=== PATIENT | female | born 1975 | race African-American/Black ===

== ENCOUNTER 2016-12-30 07:56 | Inpatient (IN) | payer OTHER ==
[~2016-12-30] VITALS: Ht 157.5 cm; Wt 127.0 kg
--- NOTE | 2016-12-30 08:23 | PHYS DOC ---
Past Medical History Past Medical History: CAD, High Cholesterol, Hypertension, NE Past Surgical History: Cholecystectomy, Other Additional Past Surgical Histo: cardiac cath, no stents placed. Alcohol Use: None Drug Use: None Adult General Chief Complaint Chief Complaint: CHEST PAIN HPI HPI Patient is a 41 year old female who is obese presents to the emergency department stating that 30 minutes prior to arrival she developed squeezing type pain in her right upper chest that radiated into her right hand. Patient denies SOA, difficulty breathing, nausea or vomiting, denies diaphoresis. Patient did take 2 ASA at home with no relief of pain. 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 Review of Systems Review of Systems Constitutional: Denies fever or chills [] Eyes: Denies change in visual acuity, redness, or eye pain [] HENT: Denies nasal congestion or sore throat [] Respiratory: Denies cough or shortness of breath [] Cardiovascular: No additional information not addressed in HPI [] GI: Denies abdominal pain, nausea, vomiting, bloody stools or diarrhea [] : Denies dysuria or hematuria [] Musculoskeletal: Denies back pain or joint pain [] Integument: Denies rash or skin lesions [] Neurologic: Denies headache, focal weakness or sensory changes [] Endocrine: Denies polyuria or polydipsia [] Current Medications Current Medications Current Medications Medications (Trade) Dose Ordered Sig/Kristopher Start Time Stop Time Status Last Admin Dose Admin Acetaminophen (Tylenol) 650 mg 1X ONCE 12/30/16 09:00 12/30/16 09:01 DC 12/30/16 09:07 650 MG Heparin Sodium (Porcine) (Heparin Sodium) 6,000 unit 1X ONCE 12/30/16 09:15 12/30/16 09:19 DC Heparin Sodium/ Dextrose 500 ml @ 0 mls/hr 1X ONCE 12/30/16 09:15 12/30/16 09:19 DC Labetalol HCl (Normodyne) 10 mg PRN Q2HR PRN 12/30/16 09:45 Nitroglycerin (Nitrostat) 0.4 mg PRN Q5MIN PRN 12/30/16 08:30 12/30/16 08:39 0.4 MG Allergies Allergies Allergies Coded Allergies Type Severity Reaction Last Updated Verified No Known Drug Allergies 04/07/14 No Physical Exam Physical Exam Constitutional: Well developed, well nourished, no acute distress, non-toxic appearance. [] HENT: Normocephalic, atraumatic, bilateral external ears normal, oropharynx moist, no oral exudates, nose normal. [] Eyes: PERRLA, EOMI, conjunctiva normal, no discharge. [] Neck: Normal range of motion, no tenderness, supple, no stridor. [] Cardiovascular:Heart rate regular rhythm, no murmur [] Lungs & Thorax: Bilateral breath sounds clear to auscultation [] Abdomen: Bowel sounds normal, soft, no tenderness, no masses, no pulsatile masses. [] Skin: Warm, dry, no erythema, no rash. [] Back: No tenderness Extremities: No tenderness, no cyanosis, no clubbing, ROM intact, no edema. [] Neurologic: Alert and oriented X 3, normal motor function, normal sensory function, no focal deficits noted. [] Psychologic: Affect normal, judgement normal, mood normal. [] Current Patient Data Vital Signs Vital Signs Date Time Temp Pulse Resp B/P (MAP) Pulse Ox O2 Delivery O2 Flow Rate FiO2 12/30/16 09:09 81 18 173/93 (119) 100 Room Air 12/30/16 08:03 97.8 97.8 Lab Values Laboratory Tests Test 12/30/16 08:42 White Blood Count 5.5 x10^3/uL (4.0-11.0) Red Blood Count 4.31 x10^6/uL (3.50-5.40) Hemoglobin 11.9 g/dL (12.0-15.5) L Hematocrit 36.6 % (36.0-47.0) Mean Corpuscular Volume 85 fL (79-100) Mean Corpuscular Hemoglobin 28 pg (25-35) Mean Corpuscular Hemoglobin Concent 33 g/dL (31-37) Red Cell Distribution Width 14.2 % (11.5-14.5) Platelet Count 241 x10^3/uL (140-400) Neutrophils (%) (Auto) 56 % (31-73) Lymphocytes (%) (Auto) 38 % (24-48) Monocytes (%) (Auto) 4 % (0-9) Eosinophils (%) (Auto) 1 % (0-3) Basophils (%) (Auto) 1 % (0-3) Neutrophils # (Auto) 3.1 x10^3uL (1.8-7.7) Lymphocytes # (Auto) 2.1 x10^3/uL (1.0-4.8) Monocytes # (Auto) 0.2 x10^3/uL (0.0-1.1) Eosinophils # (Auto) 0.1 x10^3/uL (0.0-0.7) Basophils # (Auto) 0.0 x10^3/uL (0.0-0.2) Sodium Level 140 mmol/L (136-145) Potassium Level 3.8 mmol/L (3.5-5.1) Chloride Level 105 mmol/L (98-107) Carbon Dioxide Level 25 mmol/L (21-32) Anion Gap 10 (6-14) Blood Urea Nitrogen 10 mg/dL (7-20) Creatinine 0.7 mg/dL (0.6-1.0) Estimated GFR (Cockcroft-Gault) 110.5 BUN/Creatinine Ratio 14 (6-20) Glucose Level 134 mg/dL (70-99) H Calcium Level 8.6 mg/dL (8.5-10.1) Total Bilirubin 0.3 mg/dL (0.2-1.0) Aspartate Amino Transferase (AST) 18 U/L (15-37) Alanine Aminotransferase (ALT) 17 U/L (14-59) Alkaline Phosphatase 90 U/L (46-116) Creatine Kinase 128 U/L (26-192) Creatine Kinase MB (Mass) 2.1 ng/mL (0.0-3.6) Creatine Kinase MB Relative Index 1.6 % (0-4) Troponin I Quantitative 0.162 ng/mL (0.000-0.055) Total Protein 7.2 g/dL (6.4-8.2) Albumin 3.2 g/dL (3.4-5.0) L Albumin/Globulin Ratio 0.8 (1.0-1.7) L Laboratory Tests 12/30/16 08:42 Laboratory Tests 12/30/16 08:42 EKG EKG EKG completed at 0806 with HR 67 SR noted no STEMI per Dr Goss.[] Radiology/Procedures Radiology/Procedures [facility] [address] [place] [address] IMAGING REPORT Signed PATIENT: HOMA GRAY ACCOUNT: [id number] : 1975 LOCATION: ER AGE: 41 SEX: F EXAM STATUS: PRE ER ORD. PHYSICIAN: KORIN HERNANDEZ APRN REASON: chest pain,pt states mid chest pain that radiates to right arm,denies sob PROCEDURE: PORTABLE CHEST 1V Indication: Chest pain radiating to right arm Technique: Upright portable chest radiograph was obtained. Comparison is from October 07, 2009. Findings: The lungs are clear. The cardiopulmonary silhouette is within normal limits. The bony structures are intact. Leads overlie the patient. Impression: No active pulmonary disease. DICTATED and SIGNED BY: FRANDY WELLS MD DATE: 12/30/16832 CC: KORIN HERNANDEZ APRN; NON,STAFF ~ [] Course & Med Decision Making Course & Med Decision Making Pertinent Labs and Imaging studies reviewed. (See chart for details) 0815 Patient was provided with nitro for chest pain/left arm pain and elevation BP. Labs have been ordered and pending. Care discussed with Dr Goss. Chest pain after 2 nitro is gone, patient is c/o headache with tylenol ordered. [address] Lin in regards to admission of this patient for chest pain and elevated troponin. Dr Lin is aware of the BP and HR at this time. [address] Billy in regards to elevated troponin, chest pain and admission. He is aware of BP and order for labetalol. Orders will be placed for this patient. Dr Billy also agrees with Heparin order at this time. Patient is aware of admission, she is aware of lab results. [] Dragon Disclaimer Dragon Disclaimer This electronic medical record was generated, in whole or in part, using a voice recognition dictation system. Departure Departure Impression: Primary Impression: Chest pain Additional Impression: Elevated troponin Disposition: 09 ADMITTED INPATIENT Admitting Physician: Other (Spoke with Dr Lin and Dr Billy) Referrals: NON,STAFF (PCP) Problem Qualifiers KORIN HERNANDEZ APRN December 30, 2016 08:23
[2016-12-30] MEDS: NITROGLYCERIN SUBLINGUAL 0.4 MG BOTTLE OF 25. SL PRN ×2 (08:26→08:39)
--- NOTE | 2016-12-30 08:36 | RAD ---
Indication: Chest pain radiating to right arm Technique: Upright portable chest radiograph was obtained. Comparison is from October 07, 2009. Findings: The lungs are clear. The cardiopulmonary silhouette is within normal limits. The bony structures are intact. Leads overlie the patient. Impression: No active pulmonary disease.
[2016-12-30 08:52] LABS: BASO % 1 % (0-3); EOS % 1 % (0-3); HEMATOCRIT 36.6 % (36.0-47.0); HEMOGLOBIN 11.9 g/dL (12.0-15.5); LYMPH # 2.1 x10^3/uL (1.0-4.8); LYMPH % 38 % (24-48); MEAN CORPUSCULAR HEMOGLOBIN 28 pg (25-35); MEAN CORPUSCULAR HGB CONC 33 g/dL (31-37); MEAN CORPUSCULAR VOLUME 85 fL (79-100); MONO % 4 % (0-9); NEUT % 56 % (31-73); PLATELET COUNT 241 x10^3/uL (140-400); RED BLOOD COUNT 4.31 x10^6/uL (3.50-5.40); RED CELL DISTRIBUTION WIDTH 14.2 % (11.5-14.5); WHITE BLOOD COUNT 5.5 x10^3/uL (4.0-11.0)
[2016-12-30] MEDS ORDERED: ACETAMINOPHEN 325 MG TABLET. PO ONE (09:00)
[2016-12-30 09:01] LABS: CALCIUM 8.6 mg/dL (8.5-10.1); CREATININE 0.7 mg/dL (0.6-1.0); GFR 110.5; POTASSIUM 3.8 mmol/L (3.5-5.1)
[2016-12-30 09:05] LABS: ALBUMIN 3.2 g/dL (3.4-5.0); ALBUMIN/GLOBULIN RATIO 0.8 (1.0-1.7); TOTAL BILIRUBIN 0.3 mg/dL (0.2-1.0); TOTAL PROTEIN 7.2 g/dL (6.4-8.2)
[2016-12-30 09:13] LABS: CKMB MASS 2.1 ng/mL (0.0-3.6)
[2016-12-30] MEDS ORDERED: HEPARIN 25,000UTS/500ML PREMIX 500 ML IV ONE (09:15)
[2016-12-30] MEDS ORDERED: HEPARIN for IV BOLUS 10,000 UNIT/10 ML VIAL. IV ONE (09:15)
--- NOTE | 2016-12-30 09:26 | ACF ---
Admission Forms Criteria CHEST PAIN Clinical Indications for Admission to Inpatient Care (Place 'X' for any and all applicable criteria): Admission is indicated for chest pain and ANY ONE of the following(1)(2)(3)(4)(5 ): [ ]I. Angina with acute coronary syndrome (Also use Myocardial Infarction or Angina guideline) [ ]II. Hemodynamic instability [ ]III. Angina needing acute intervention as indicated by ALL of the following( 11)(12): [ ]a) Unstable angina is present as indicated by angina that is ANY ONE of the following: [ ]i) New onset [ ]ii) Nocturnal [ ]iii) Prolonged at rest [ ]iv) Progressive [ ]b) Angina warrants acute intervention as indicated by ANY ONE of the following: [ ]i) Recurrent angina (e.g, not responding as previously to treatment) [ ]ii) Angina at rest or with low-level activities despite initial medical therapy [ ]iii) New or presumably new ST-segment depression on ECG [ ]iv) Signs or symptoms of heart failure (eg, dyspnea, pulmonary edema) [ ]v) New or worsening mitral regurgitation [ ]vi) Hemodynamic instability [ ]vii) Dangerous arrhythmia (eg, sustained ventricular tachycardia) [ ]viii) History of percutaneous coronary intervention within 6 months [ ]ix) History of coronary artery bypass graft surgery [ ]x) DAVION risk score of 2 or greater[A] [ ]xi) History of Diabetes(14) [ ]xii) High-risk cardiac ischemia findings on noninvasive testing (e.g, echocardiogram, treadmill testing, nuclear scan) [ ]xiii) Chronic renal insufficiency (ie, estimated GFR less than 60 mL/min/1.732m) [ ]xiv) Left ventricular ejection fraction less than 40% [X]IV. Evidence of CO (eg, cardiac biomarkers positive, ST-segment elevation on ECG) also use Myocardial Infarction Criteria Form. [ ]V. Pulmonary edema [ ]. Respiratory distress [ ]VII. Chest pain indicative of serious diagnosis other than coronary artery disease (eg, aortic dissection) [ ]VIII. Contraindications and/or Inappropriate clinical situations for Observational Care in patients with Chest Pain, when ANY ONE of the following is required: [ ]a) Patient with risk factor for pulmonary embolism, acute coronary syndrome and myocardial infarction (18) [ ]b) Patient with Pulmonary embolism require an average LOS of 4.3 days, therefore emergency department observation management is inappropriate 18,23 [ ]c) Painful condition/s in the elderly, have the highest rate of recidivism after emergency department observation management (10.8%) 20,21,22 [ ]d) Elevated cardiac biomarker requires intensive and exhaustive care (19) [ ]IX. General contraindications and/or Inappropriate clinical situations for Observational Care in patients with Chest Pain, when ANY ONE of the following is required: [ ]a) Prediction of prolongation of LOS based on ANY ONE of the following may be considered as a contraindication for observational care 2, 3, 4, 5, 6, 7, 8, 9, 10, 11 [ ]i) Age > 65 yrs. [ ]ii) Patient arriving by ambulance [ ]iii) Patient with high acuity [ ]iv) Patient requiring vital sign monitoring [ ]v) Patient on IV medication [ ]b) Systolic blood pressures 180mmHg 3,12 [ ]c) Patient with altered mental status including delirium and other alteration of consciousness, (3) [ ]d) Patient whose discharge disposition will be to a nursing home home or rehabilitation home should not be managed in Emergency Department Observation Unit. CMS rule requires 3 days hospital stay before such placement. 3,13 [ ]e) Patient with failure to thrive due to broad array of etiologies 3,16,17 [ ]f) Inability to ambulate 3,14 Extended stay beyond goal length of stay may be needed for (1)(28): [ ]a) Specific condition diagnosed after evaluation (eg, pulmonary embolism, aortic dissection) [ ]b) Unstable angina [ ]c) Continued suspicion of acute coronary syndrome with inability to complete needed cardiac evaluation (eg, patient clinically unable to undergo stress testing) [ ]d) Myocardial infarction (Contents from ANGINA and CHEST PAIN clinical indications for admission to inpatient care have been integrated in this form) The original [facility] content created by [employer] has been revised. The portions of the content which have been revised are identified through the use of italic text or in bold, and [facility] has neither reviewed nor approved the modified material. All other unmodified content is copyright [employer]. Please see references footnoted in the original [facility] edition 2016 Admission Criteria Met?: Yes CYNTHIA REGALADO December 30, 2016 09:26
[2016-12-30] MEDS: LABETALOL 20 MG/4 ML DISP.SYRIN. IVP PRN ×2 (10:08→10:10)
[2016-12-30 10:29] LABS: INR 1.1 (0.8-1.1); PROTHROMBIN TIME PATIENT 13.9 SEC (11.7-14.0)
[2016-12-30 11:31] VITALS: BP 140/71
--- NOTE | 2016-12-30 12:46 | PDOC1 ---
History and Physical Date of Admission Date of Admission DATE: 12/30/16 TIME: 12:38 Identification/Chief Complaint Chief Complaint chest pain Problems: Source Source: Caregiver, Chart review, Patient History of Present Illness History of Present Illness 41 y.o heavy set AA female, hx of chest pains, intermittent for yrs now, HAd a cardiac cath in in 2012, showed some "thickening" but no stents placed. She is supposed to be on anti hypertensives, buts he admits she is not on any, She has not seen her PCP either, HEr BP is high at ER, better with labetolol pushes that I have ordered. CP she describes as left sided, radiated to her R arm, described as tight, no diaphoresis or SOA but had headaches. Occurred at rest, alleviated by NTG SL and 2 ASA she took at home EKg unimpressive but did spike trop 0.162 Started on heparin gtt by cards, and to get records from . PLanned for possibly MPI karri Past Medical History Cardiovascular: HTN Past Surgical History Past Surgical History: Other (minor abodminal surgical hx) Family History Family History: Hypertension Social History Smoke: No ALCOHOL: none Drugs: None Current Problem List Problem List Problems Medical Problems: (1) Chest pain Status: Acute (2) Elevated troponin Status: Acute Problems: Current Medications Current Medications Current Medications Nitroglycerin (Nitrostat) 0.4 mg PRN Q5MIN PRN SL CHEST PAIN Last administered on 12/30/16 08:39; Start 12/30/16 at 08:30 Acetaminophen (Tylenol) 650 mg 1X ONCE PO Last administered on 12/30/16 09:07 ; Start 12/30/16 at 09:00; Stop 12/30/16 at 09:01; Status DC Heparin Sodium (Porcine) (Heparin Sodium) 6,000 unit 1X ONCE IV Last administered on 12/30/16 09:48; Start 12/30/16 at 09:15; Stop 12/30/16 at 09:19 ; Status DC Heparin Sodium/ Dextrose 500 ml @ 0 mls/hr 1X ONCE IV Last administered on 09:51; Start 12/30/16 at 09:15; Stop 12/30/16 at 09:19; Status DC Labetalol HCl (Normodyne) 10 mg PRN Q2HR PRN IVP HYPERTENSION, SEE COMMENTS Last administered on 5/21/17at 10:10; Start 12/30/16 at 09:45 Allergies Allergies: Coded Allergies: No Known Drug Allergies (Unverified , 04/07/14) ROS General: No: Chills, Night Sweats, Fatigue, Malaise, Appetite, Other PSYCHOLOGICAL ROS: No: Anxiety, Behavioral Disorder, Concentration difficultie , Decreased libido, Depression, Disorientation, Hallucinations, Hostility, Irritablity, Memory difficulties, Mood Swings, Obsessive thoughts, Physical abuse, Sexual abuse, Sleep disturbances, Suicidal ideation, Other Eyes: No Blurry vision, No Decreased vision, No Double vision, No Dry eyes, No Excessive tearing, No Eye Pain, No Itchy Eyes, No Loss of vision, No Photophobia , No Scotomata, No Uses contacts, No Uses glasses, No Other HEENT: No: Heacaches, Visual Changes, Hearing change, Nasal congestion, Nasal discharge, Oral lesions, Sinus pain, Sore Throat, Epistaxis, Sneezing, Snoring, Tinnitus, Vertigo, Vocal changes, Other ALLERGY AND IMMUNOLOGY: No: Hives, Insect Bite Sensitivity, Itchy/Watery Eyes, Nasal Congestion, Post Nasal Drip, Seasonal Allergies, Other Hematological and Lymphatic: No: Bleeding Problems, Blood Clots, Blood Transfusions, Brusing, Night Sweats, Pallor, Swollen Lymph Nodes, Other ENDOCRINE: No: Breast Changes, Galactorrhea, Hair Pattern Changes, Hot Flashes , Malaise/lethargy, Mood Swings, Palpitations, Polydipsia/polyuria, Skin Changes , Temperature Intolerance, Unexpected Weight Changes, Other Breast: No New/Changing Breast Lumps, No Nipple changes, No Nipple discharge, No Other Respiratory: No: Cough, Hemoptysis, Orthopnea, Pleuritic Pain, Shortness of breath, SOB with excertion, Sputum Changes, Stridor, Tachypnea, Wheezing, Other Cardiovascular: yes Chest Pain Gastrointestinal: No Nausea, No Vomiting, No Abdominal Pain, No Diarrhea, No Constipation, No Melena, No Hematochezia, No Other Genitourinary: No Dysuria, No Frequency, No Incontinence, No Hematuria, No Retention, No Discharge, No Urgency, No Pain, No Flank Pain, No Other, No , No , No , No , No , No , No Musculoskeletal: No Gait Disturbance, No Joint Pain, No Joint Stiffness, No Joint Swelling, No Muscle Pain, No Muscular Weakness, No Pain In:, No Swelling In:, No Other Neurological: No Behavorial Changes, No Bowel/Bladder ControlChng, No Confusion , No Dizziness, No Gait Disturbance, No Headaches, No Impaired Coord/balance, No Memory Loss, No Numbness/Tingling, No Seizures, No Speech Problems, No Tremors, No Visual Changes, No Weakness, No Other Skin: No Dry Skin, No Eczema, No Hair Changes, No Lumps, No Mole Changes, No Mottling, No Nail Changes, No Pruritus, No Rash, No Skin Lesion Changes, No Other, No Acne Physical Exam General: Alert, Oriented X3, Cooperative, No acute distress HEENT: Atraumatic, PERRLA, EOMI Lungs: Clear to auscultation, Normal air movement Heart: S1S2, RRR, no thrills, no rubs, no gallops Cardiovascular: S1, S2 Breasts: Normal, Rt breast nml w/o mass, Lt breast nml w/o mass, Nipples normal Rectal Exam: not examined Extremities: No clubbing, No cyanosis, No edema, Normal pulses, No tenderness/ swelling Skin: No rashes, No breakdown, No significant lesion Neuro: Normal gait, Normal speech, Strength at 5/5 X4 ext, Normal tone, Sensation intact, Cranial nerves 3-12 NL, Reflexes 2+ Psych/Mental Status: Mental status NL, Mood NL Vitals Vitals Vital Signs Date Time Temp Pulse Resp B/P (MAP) Pulse Ox O2 Delivery O2 Flow Rate FiO2 12/30/16 11:31 97.7 63 20 140/71 (94) 97.7 12/30/16 10:15 100 Room Air Labs Labs Laboratory Tests Test 12/30/16 08:42 12/30/16 09:40 White Blood Count 5.5 x10^3/uL (4.0-11.0) Red Blood Count 4.31 x10^6/uL (3.50-5.40) Hemoglobin 11.9 g/dL (12.0-15.5) Hematocrit 36.6 % (36.0-47.0) Mean Corpuscular Volume 85 fL (79-100) Mean Corpuscular Hemoglobin 28 pg (25-35) Mean Corpuscular Hemoglobin Concent 33 g/dL (31-37) Red Cell Distribution Width 14.2 % (11.5-14.5) Platelet Count 241 x10^3/uL (140-400) Neutrophils (%) (Auto) 56 % (31-73) Lymphocytes (%) (Auto) 38 % (24-48) Monocytes (%) (Auto) 4 % (0-9) Eosinophils (%) (Auto) 1 % (0-3) Basophils (%) (Auto) 1 % (0-3) Neutrophils # (Auto) 3.1 x10^3uL (1.8-7.7) Lymphocytes # (Auto) 2.1 x10^3/uL (1.0-4.8) Monocytes # (Auto) 0.2 x10^3/uL (0.0-1.1) Eosinophils # (Auto) 0.1 x10^3/uL (0.0-0.7) Basophils # (Auto) 0.0 x10^3/uL (0.0-0.2) Sodium Level 140 mmol/L (136-145) Potassium Level 3.8 mmol/L (3.5-5.1) Chloride Level 105 mmol/L (98-107) Carbon Dioxide Level 25 mmol/L (21-32) Anion Gap 10 (6-14) Blood Urea Nitrogen 10 mg/dL (7-20) Creatinine 0.7 mg/dL (0.6-1.0) Estimated GFR (Cockcroft-Gault) 110.5 BUN/Creatinine Ratio 14 (6-20) Glucose Level 134 mg/dL (70-99) Calcium Level 8.6 mg/dL (8.5-10.1) Total Bilirubin 0.3 mg/dL (0.2-1.0) Aspartate Amino Transf (AST/SGOT) 18 U/L (15-37) Alanine Aminotransferase (ALT/SGPT) 17 U/L (14-59) Alkaline Phosphatase 90 U/L (46-116) Creatine Kinase 128 U/L (26-192) Creatine Kinase MB (Mass) 2.1 ng/mL (0.0-3.6) Creatine Kinase MB Relative Index 1.6 % (0-4) Troponin I Quantitative 0.162 ng/mL (0.000-0.055) Total Protein 7.2 g/dL (6.4-8.2) Albumin 3.2 g/dL (3.4-5.0) Albumin/Globulin Ratio 0.8 (1.0-1.7) Prothrombin Time 13.9 SEC (11.7-14.0) Prothromb Time International Ratio 1.1 (0.8-1.1) Activated Partial Thromboplast Time 31 SEC (24-38) Laboratory Tests Test 12/30/16 08:42 12/30/16 09:40 White Blood Count 5.5 x10^3/uL (4.0-11.0) Red Blood Count 4.31 x10^6/uL (3.50-5.40) Hemoglobin 11.9 g/dL (12.0-15.5) Hematocrit 36.6 % (36.0-47.0) Mean Corpuscular Volume 85 fL (79-100) Mean Corpuscular Hemoglobin 28 pg (25-35) Mean Corpuscular Hemoglobin Concent 33 g/dL (31-37) Red Cell Distribution Width 14.2 % (11.5-14.5) Platelet Count 241 x10^3/uL (140-400) Neutrophils (%) (Auto) 56 % (31-73) Lymphocytes (%) (Auto) 38 % (24-48) Monocytes (%) (Auto) 4 % (0-9) Eosinophils (%) (Auto) 1 % (0-3) Basophils (%) (Auto) 1 % (0-3) Neutrophils # (Auto) 3.1 x10^3uL (1.8-7.7) Lymphocytes # (Auto) 2.1 x10^3/uL (1.0-4.8) Monocytes # (Auto) 0.2 x10^3/uL (0.0-1.1) Eosinophils # (Auto) 0.1 x10^3/uL (0.0-0.7) Basophils # (Auto) 0.0 x10^3/uL (0.0-0.2) Sodium Level 140 mmol/L (136-145) Potassium Level 3.8 mmol/L (3.5-5.1) Chloride Level 105 mmol/L (98-107) Carbon Dioxide Level 25 mmol/L (21-32) Anion Gap 10 (6-14) Blood Urea Nitrogen 10 mg/dL (7-20) Creatinine 0.7 mg/dL (0.6-1.0) Estimated GFR (Cockcroft-Gault) 110.5 BUN/Creatinine Ratio 14 (6-20) Glucose Level 134 mg/dL (70-99) Calcium Level 8.6 mg/dL (8.5-10.1) Total Bilirubin 0.3 mg/dL (0.2-1.0) Aspartate Amino Transf (AST/SGOT) 18 U/L (15-37) Alanine Aminotransferase (ALT/SGPT) 17 U/L (14-59) Alkaline Phosphatase 90 U/L (46-116) Creatine Kinase 128 U/L (26-192) Creatine Kinase MB (Mass) 2.1 ng/mL (0.0-3.6) Creatine Kinase MB Relative Index 1.6 % (0-4) Troponin I Quantitative 0.162 ng/mL (0.000-0.055) Total Protein 7.2 g/dL (6.4-8.2) Albumin 3.2 g/dL (3.4-5.0) Albumin/Globulin Ratio 0.8 (1.0-1.7) Prothrombin Time 13.9 SEC (11.7-14.0) Prothromb Time International Ratio 1.1 (0.8-1.1) Activated Partial Thromboplast Time 31 SEC (24-38) VTE Prophylaxis Ordered VTE Prophylaxis Devices: Yes VTE Pharmacological Prophylaxi: Yes Assessment/Plan Assessment/Plan 1, Chest pains 2. Hx intermittent chest pains with no stents deployed in cardiac cath done kU 2012 3. MOrbid Obesity 4. HTN urgency POA PLAn: Labetolol prn IF HTN persists, will need 2 anti hypertensive agents to go home with Possible MPI karri or echo - follow cards recs Started on heparin gtt - cont for now Can check lipid panel dw pt and RN PILI STEWART MD December 30, 2016 12:46
--- NOTE | 2016-12-30 12:54 | PDOC2 ---
CONSULT Date of Consult Date of Consult DATE: 12/30/16 TIME: 12:48 Reason for Consult Reason for Consult: chest pain Referring Physician Referring Physician: Dr. Lin Identification/Chief Complaint Chief Complaint chest pain Source Source: Patient History of Present Illness Reason for Visit: The patient is a 41-year-old female who reports right upper chest discomfort earlier this morning radiating to her right hand. This pain was still present while she arrived in the emergency room but is now largely resolved. Her EKG shows no acute changes. Initial troponin is 0.162. The patient reports a history of a possible myocardial infarction and a cardiac catheterization at [facility] 4 years ago. She also has hypertension, hyperlipidemia and obesity. Chest x-ray is clear. She is feeling much better at this time. Past Medical History Cardiovascular: CAD, HTN, Hyperlipidemia GI: GERD Past Surgical History Past Surgical History: Other (minor abodminal surgical hx) Family History Family History: Hypertension Social History No ALCOHOL: none Drugs: None Current Problem List Problem List Problems Medical Problems: (1) Chest pain Status: Acute (2) Elevated troponin Status: Acute Current Medications Current Medications Current Medications Nitroglycerin (Nitrostat) 0.4 mg PRN Q5MIN PRN SL CHEST PAIN Last administered on 12/30/16 08:39; Start 12/30/16 at 08:30 Acetaminophen (Tylenol) 650 mg 1X ONCE PO Last administered on 12/30/16 09:07 ; Start 12/30/16 at 09:00; Stop 12/30/16 at 09:01; Status DC Heparin Sodium (Porcine) (Heparin Sodium) 6,000 unit 1X ONCE IV Last administered on 12/30/16 09:48; Start 12/30/16 at 09:15; Stop 12/30/16 at 09:19 ; Status DC Heparin Sodium/ Dextrose 500 ml @ 0 mls/hr 1X ONCE IV Last administered on 09:51; Start 12/30/16 at 09:15; Stop 12/30/16 at 09:19; Status DC Labetalol HCl (Normodyne) 10 mg PRN Q2HR PRN IVP HYPERTENSION, SEE COMMENTS Last administered on 12/30/16 10:10; Start 12/30/16 at 09:45 Allergies Allergies: Coded Allergies: No Known Drug Allergies (Unverified , 8/27/14) ROS Cardiovascular: yes Chest Pain Physical Exam General: No acute distress HEENT: Atraumatic Lungs: Clear to auscultation Heart: Regular rate Abdomen: Normal bowel sounds Extremities: No clubbing Vitals VITALS Vital Signs Date Time Temp Pulse Resp B/P (MAP) Pulse Ox O2 Delivery O2 Flow Rate FiO2 12/30/16 11:31 97.7 63 20 140/71 (94) 97.7 12/30/16 10:15 100 Room Air Labs Labs Laboratory Tests Test 12/30/16 08:42 12/30/16 09:40 White Blood Count 5.5 x10^3/uL (4.0-11.0) Red Blood Count 4.31 x10^6/uL (3.50-5.40) Hemoglobin 11.9 g/dL (12.0-15.5) Hematocrit 36.6 % (36.0-47.0) Mean Corpuscular Volume 85 fL (79-100) Mean Corpuscular Hemoglobin 28 pg (25-35) Mean Corpuscular Hemoglobin Concent 33 g/dL (31-37) Red Cell Distribution Width 14.2 % (11.5-14.5) Platelet Count 241 x10^3/uL (140-400) Neutrophils (%) (Auto) 56 % (31-73) Lymphocytes (%) (Auto) 38 % (24-48) Monocytes (%) (Auto) 4 % (0-9) Eosinophils (%) (Auto) 1 % (0-3) Basophils (%) (Auto) 1 % (0-3) Neutrophils # (Auto) 3.1 x10^3uL (1.8-7.7) Lymphocytes # (Auto) 2.1 x10^3/uL (1.0-4.8) Monocytes # (Auto) 0.2 x10^3/uL (0.0-1.1) Eosinophils # (Auto) 0.1 x10^3/uL (0.0-0.7) Basophils # (Auto) 0.0 x10^3/uL (0.0-0.2) Sodium Level 140 mmol/L (136-145) Potassium Level 3.8 mmol/L (3.5-5.1) Chloride Level 105 mmol/L (98-107) Carbon Dioxide Level 25 mmol/L (21-32) Anion Gap 10 (6-14) Blood Urea Nitrogen 10 mg/dL (7-20) Creatinine 0.7 mg/dL (0.6-1.0) Estimated GFR (Cockcroft-Gault) 110.5 BUN/Creatinine Ratio 14 (6-20) Glucose Level 134 mg/dL (70-99) Calcium Level 8.6 mg/dL (8.5-10.1) Total Bilirubin 0.3 mg/dL (0.2-1.0) Aspartate Amino Transf (AST/SGOT) 18 U/L (15-37) Alanine Aminotransferase (ALT/SGPT) 17 U/L (14-59) Alkaline Phosphatase 90 U/L (46-116) Creatine Kinase 128 U/L (26-192) Creatine Kinase MB (Mass) 2.1 ng/mL (0.0-3.6) Creatine Kinase MB Relative Index 1.6 % (0-4) Troponin I Quantitative 0.162 ng/mL (0.000-0.055) Total Protein 7.2 g/dL (6.4-8.2) Albumin 3.2 g/dL (3.4-5.0) Albumin/Globulin Ratio 0.8 (1.0-1.7) Prothrombin Time 13.9 SEC (11.7-14.0) Prothromb Time International Ratio 1.1 (0.8-1.1) Activated Partial Thromboplast Time 31 SEC (24-38) Laboratory Tests Test 12/30/16 08:42 12/30/16 09:40 White Blood Count 5.5 x10^3/uL (4.0-11.0) Red Blood Count 4.31 x10^6/uL (3.50-5.40) Hemoglobin 11.9 g/dL (12.0-15.5) Hematocrit 36.6 % (36.0-47.0) Mean Corpuscular Volume 85 fL (79-100) Mean Corpuscular Hemoglobin 28 pg (25-35) Mean Corpuscular Hemoglobin Concent 33 g/dL (31-37) Red Cell Distribution Width 14.2 % (11.5-14.5) Platelet Count 241 x10^3/uL (140-400) Neutrophils (%) (Auto) 56 % (31-73) Lymphocytes (%) (Auto) 38 % (24-48) Monocytes (%) (Auto) 4 % (0-9) Eosinophils (%) (Auto) 1 % (0-3) Basophils (%) (Auto) 1 % (0-3) Neutrophils # (Auto) 3.1 x10^3uL (1.8-7.7) Lymphocytes # (Auto) 2.1 x10^3/uL (1.0-4.8) Monocytes # (Auto) 0.2 x10^3/uL (0.0-1.1) Eosinophils # (Auto) 0.1 x10^3/uL (0.0-0.7) Basophils # (Auto) 0.0 x10^3/uL (0.0-0.2) Sodium Level 140 mmol/L (136-145) Potassium Level 3.8 mmol/L (3.5-5.1) Chloride Level 105 mmol/L (98-107) Carbon Dioxide Level 25 mmol/L (21-32) Anion Gap 10 (6-14) Blood Urea Nitrogen 10 mg/dL (7-20) Creatinine 0.7 mg/dL (0.6-1.0) Estimated GFR (Cockcroft-Gault) 110.5 BUN/Creatinine Ratio 14 (6-20) Glucose Level 134 mg/dL (70-99) Calcium Level 8.6 mg/dL (8.5-10.1) Total Bilirubin 0.3 mg/dL (0.2-1.0) Aspartate Amino Transf (AST/SGOT) 18 U/L (15-37) Alanine Aminotransferase (ALT/SGPT) 17 U/L (14-59) Alkaline Phosphatase 90 U/L (46-116) Creatine Kinase 128 U/L (26-192) Creatine Kinase MB (Mass) 2.1 ng/mL (0.0-3.6) Creatine Kinase MB Relative Index 1.6 % (0-4) Troponin I Quantitative 0.162 ng/mL (0.000-0.055) Total Protein 7.2 g/dL (6.4-8.2) Albumin 3.2 g/dL (3.4-5.0) Albumin/Globulin Ratio 0.8 (1.0-1.7) Prothrombin Time 13.9 SEC (11.7-14.0) Prothromb Time International Ratio 1.1 (0.8-1.1) Activated Partial Thromboplast Time 31 SEC (24-38) Images Images Chest x-ray is clear. Assessment/Plan Assessment/Plan 1. Chest pain. Patient is feeling much better at this time. EKG shows no acute ischemic changes. Troponin is 0.162. The patient reports a history of coronary artery disease in the catheterization at approximately 3 years ago. We will admit and rule out for myocardial infarction. Anticoagulate. Stress testing versus catheterization based on the patient's clinical course. 2. Hypertension. We'll continue present medications and adjust as needed. 3. Hyperlipidemia. We'll check a lipid panel. 4. Obesity. Discussed weight loss and exercise program. Thank you for allowing us to participate in the care of your patient. ALEXANDRA MEDEIROS MD December 30, 2016 12:54
[2016-12-30 13:40] LABS: NEG OBC SER NEG; POS OBC SER POS
[2016-12-30] MEDS ORDERED: HEPARIN 25,000UTS/500ML PREMIX 500 ML IV PRN (14:15)
[2016-12-30] MEDS ORDERED: HEPARIN for IV BOLUS 10,000 UNIT/10 ML VIAL. IV PRN (14:15)
--- NOTE | 2016-12-30 14:43 | EKG ---
[facility] [address] [place] [address] Test Date: 2016-12-30 Test Time: 08:06:14 Pat Name: HOMA GRAY Department: Room: 207 Gender: F Health Aid: : 1975 Requested By: KORIN HERNANDEZ Order Number: [id number] Reading MD: Ileana Kramer Measurements Intervals [place] Rate: 67 P: 18 ND: 188 QRS: -11 QRSD: 132 T: 11 QT: 434 QTc: 462 Interpretive Statements SINUS RHYTHM LEFTWARD AXIS RIGHT BUNDLE BRANCH BLOCK QRS(T) CONTOUR ABNORMALITY CONSIDER ANTEROSEPTAL MYOCARDIAL DAMAGE RI6.01 Unconfirmed report No previous ECG available for comparison Electronically Signed On 12-31-2016 21:29:58 CDT by Ileana Kramer
[2016-12-30 14:58] VITALS: BP 169/82
[2016-12-30] MEDS ORDERED: FAMO-63 PO (17:01)
[2016-12-30] MEDS ORDERED: SIMV10TA3 PO (17:01)
[2016-12-30] MEDS ORDERED: CYAN10005 PO (17:01)
[2016-12-30] MEDS ORDERED: NITR0.4T6 SL (17:01)
[2016-12-30] MEDS ORDERED: DILT180C2 PO (17:01)
[2016-12-30] MEDS ORDERED: LISI-338 PO (17:01)
[2016-12-30] MEDS ORDERED: CLIN50GE TP (17:01)
[2016-12-30] MEDS ORDERED: CARV3.12 PO (17:01)
[2016-12-30] MEDS ORDERED: ASPI81TA9 PO (17:01)
[2016-12-30] MEDS ORDERED: CLOP75TA PO (17:01)
[2016-12-30 19:40] VITALS: BP 163/94
[2016-12-30 23:35] VITALS: BP 150/76
[2016-12-31] VITALS (11 sets, daily range): BP systolic 122–171; BP diastolic 68–103
[2016-12-31 06:32] LABS: CHOLESTEROL/HDL RATIO 3.9
[2016-12-31] MEDS ORDERED: ACETAMINOPHEN 325 MG TABLET. PO PRN (08:30)
--- NOTE | 2016-12-31 09:51 | PDOC ---
PROGRESS NOTES Chief Complaint Chief Complaint CC: chest pain A/P Chest pain, ? unstable angina, On heparin gtt, Planning for left heart catheterization NSTEMI Plan ACS Protocol, heparin Cath today, Pain free labs reviewed. History of Present Illness History of Present Illness no chest pain no fever no chills. Vitals Vitals Vital Signs Date Time Temp Pulse Resp B/P (MAP) Pulse Ox O2 Delivery O2 Flow Rate FiO2 12/31/16 07:00 97.4 73 20 151/85 (107) 92 Room Air 97.4 Physical Exam General: Alert, Oriented X3, No acute distress Heart: Regular rate, Normal S1, Normal S2 Abdomen: Normal bowel sounds Extremities: No clubbing Skin: No rashes, No breakdown, No significant lesion Labs LABS Laboratory Tests Test 12/30/16 13:03 12/30/16 15:20 12/30/16 21:45 12/31/16 05:30 D-Dimer (Helen) 0.55 ug/mlFEU (0.00-0.50) Serum Test, Qualitative Negative (NEG) Heparin Anti-Xa Act, Unfractionated < 0.10 IU/mL (0.30-0.70) 0.89 IU/mL (0.30-0.70) 0.52 IU/mL (0.30-0.70) Troponin I Quantitative 7.729 ng/mL (0.000-0.055) 4.530 ng/mL (0.000-0.055) 2.331 ng/mL (0.000-0.055) Triglycerides Level 68 mg/dL (0-150) Cholesterol Level 136 mg/dL (0-200) LDL Cholesterol, Calculated 87 mg/dL (0-100) VLDL Cholesterol, Calculated 14 mg/dL (0-40) Non-HDL Cholesterol Calculated 101 mg/dL (0-129) HDL Cholesterol 35 mg/dL (40-60) Cholesterol/HDL Ratio 3.9 Assessment and Plan Assessmemt and Plan Problems Medical Problems: (1) Chest pain Status: Acute (2) Elevated troponin Status: Acute Problems: Comment Review of Relevant I have reviewed the following items ashley (where applicable) has been applied. Labs Laboratory Tests Test 12/30/16 08:42 12/30/16 09:40 12/30/16 13:03 12/30/16 15:20 White Blood Count 5.5 x10^3/uL (4.0-11.0) Red Blood Count 4.31 x10^6/uL (3.50-5.40) Hemoglobin 11.9 g/dL (12.0-15.5) Hematocrit 36.6 % (36.0-47.0) Mean Corpuscular Volume 85 fL (79-100) Mean Corpuscular Hemoglobin 28 pg (25-35) Mean Corpuscular Hemoglobin Concent 33 g/dL (31-37) Red Cell Distribution Width 14.2 % (11.5-14.5) Platelet Count 241 x10^3/uL (140-400) Neutrophils (%) (Auto) 56 % (31-73) Lymphocytes (%) (Auto) 38 % (24-48) Monocytes (%) (Auto) 4 % (0-9) Eosinophils (%) (Auto) 1 % (0-3) Basophils (%) (Auto) 1 % (0-3) Neutrophils # (Auto) 3.1 x10^3uL (1.8-7.7) Lymphocytes # (Auto) 2.1 x10^3/uL (1.0-4.8) Monocytes # (Auto) 0.2 x10^3/uL (0.0-1.1) Eosinophils # (Auto) 0.1 x10^3/uL (0.0-0.7) Basophils # (Auto) 0.0 x10^3/uL (0.0-0.2) Sodium Level 140 mmol/L (136-145) Potassium Level 3.8 mmol/L (3.5-5.1) Chloride Level 105 mmol/L (98-107) Carbon Dioxide Level 25 mmol/L (21-32) Anion Gap 10 (6-14) Blood Urea Nitrogen 10 mg/dL (7-20) Creatinine 0.7 mg/dL (0.6-1.0) Estimated GFR (Cockcroft-Gault) 110.5 BUN/Creatinine Ratio 14 (6-20) Glucose Level 134 mg/dL (70-99) Calcium Level 8.6 mg/dL (8.5-10.1) Total Bilirubin 0.3 mg/dL (0.2-1.0) Aspartate Amino Transf (AST/SGOT) 18 U/L (15-37) Alanine Aminotransferase (ALT/SGPT) 17 U/L (14-59) Alkaline Phosphatase 90 U/L (46-116) Creatine Kinase 128 U/L (26-192) Creatine Kinase MB (Mass) 2.1 ng/mL (0.0-3.6) Creatine Kinase MB Relative Index 1.6 % (0-4) Troponin I Quantitative 0.162 ng/mL (0.000-0.055) 7.729 ng/mL (0.000-0.055) Total Protein 7.2 g/dL (6.4-8.2) Albumin 3.2 g/dL (3.4-5.0) Albumin/Globulin Ratio 0.8 (1.0-1.7) Prothrombin Time 13.9 SEC (11.7-14.0) Prothromb Time International Ratio 1.1 (0.8-1.1) Activated Partial Thromboplast Time 31 SEC (24-38) D-Dimer (Helen) 0.55 ug/mlFEU (0.00-0.50) Serum Test, Qualitative Negative (NEG) Heparin Anti-Xa Act, Unfractionated < 0.10 IU/mL (0.30-0.70) Test 12/30/16 21:45 12/31/16 05:30 Heparin Anti-Xa Act, Unfractionated 0.89 IU/mL (0.30-0.70) 0.52 IU/mL (0.30-0.70) Troponin I Quantitative 4.530 ng/mL (0.000-0.055) 2.331 ng/mL (0.000-0.055) Triglycerides Level 68 mg/dL (0-150) Cholesterol Level 136 mg/dL (0-200) LDL Cholesterol, Calculated 87 mg/dL (0-100) VLDL Cholesterol, Calculated 14 mg/dL (0-40) Non-HDL Cholesterol Calculated 101 mg/dL (0-129) HDL Cholesterol 35 mg/dL (40-60) Cholesterol/HDL Ratio 3.9 Laboratory Tests Test 12/30/16 13:03 12/30/16 15:20 12/30/16 21:45 12/31/16 05:30 D-Dimer (Helen) 0.55 ug/mlFEU (0.00-0.50) Serum Test, Qualitative Negative (NEG) Heparin Anti-Xa Act, Unfractionated < 0.10 IU/mL (0.30-0.70) 0.89 IU/mL (0.30-0.70) 0.52 IU/mL (0.30-0.70) Troponin I Quantitative 7.729 ng/mL (0.000-0.055) 4.530 ng/mL (0.000-0.055) 2.331 ng/mL (0.000-0.055) Triglycerides Level 68 mg/dL (0-150) Cholesterol Level 136 mg/dL (0-200) LDL Cholesterol, Calculated 87 mg/dL (0-100) VLDL Cholesterol, Calculated 14 mg/dL (0-40) Non-HDL Cholesterol Calculated 101 mg/dL (0-129) HDL Cholesterol 35 mg/dL (40-60) Cholesterol/HDL Ratio 3.9 Medications Current Medications Nitroglycerin (Nitrostat) 0.4 mg PRN Q5MIN PRN SL CHEST PAIN Last administered on 12/30/16 08:39; Start 12/30/16 at 08:30 Acetaminophen (Tylenol) 650 mg 1X ONCE PO Last administered on 12/30/16 09:07 ; Start 12/30/16 at 09:00; Stop 12/30/16 at 09:01; Status DC Heparin Sodium (Porcine) (Heparin Sodium) 6,000 unit 1X ONCE IV Last administered on 12/30/16 09:48; Start 12/30/16 at 09:15; Stop 12/30/16 at 09:19 ; Status DC Heparin Sodium/ Dextrose 500 ml @ 0 mls/hr 1X ONCE IV Last administered on 09:51; Start 12/30/16 at 09:15; Stop 12/30/16 at 09:19; Status DC Labetalol HCl (Normodyne) 10 mg PRN Q2HR PRN IVP HYPERTENSION, SEE COMMENTS Last administered on 12/30/16 10:10; Start 12/30/16 at 09:45 Heparin Sodium/ Dextrose 500 ml @ 0 mls/hr CONT PRN IV SEE I/O RECORD Last administered on 12/31/16 08:10; Start 12/30/16 at 14:15 Heparin Sodium (Porcine) (Heparin Sodium) 3,300 unit PRN Q6HRS PRN IV FOR UFH LEVEL LESS THAN 0.2 Last administered on 12/30/16 17:41; Start 12/30/16 at 14: 15 Acetaminophen (Tylenol) 650 mg PRN Q6HRS PRN PO HEADACHE Last administered on 08:35; Start 12/31/16 at 08:30 Active Scripts Active Reported Vitamin B-12 (Cyanocobalamin (Vitamin B-12)) 1,000 Mcg Tablet 500 Mcg PO NITROGLYCERIN SubLingual (Nitroglycerin) 0.4 Mg Tab.subl 0.4 Mg SL PRN Q5MIN PRN Pepcid (Famotidine) 20 Mg Tablet 20 Mg PO BID Clopidogrel (Clopidogrel Bisulfate) 75 Mg Tablet 1 Tab PO DAILY Aspirin Ec (Aspirin) 81 Mg Tablet.dr 1 Tab PO DAILY Cardizem Cd (Diltiazem Hcl) 180 Mg Cap.er.24h 1 Cap PO DAILY Lisinopril 5 Mg Tablet 1 Tab PO DAILY Simvastatin 10 Mg Tablet 1 Tab PO QHS Coreg (Carvedilol) 3.125 Mg Tablet 1 Tab PO BID Vitals/I & O Vital Sign - Last 24 Hours 12/30/16 12/30/16 12/30/16 12/30/16 10:08 10:10 10:15 11:00 Pulse 70 70 70 Resp 18 B/P (MAP) 166/86 166/86 165/81 (109) Pulse Ox 100 O2 Delivery Room Air Room Air 12/30/16 12/30/16 12/30/16 12/30/16 11:31 14:58 19:40 20:00 Temp 97.7 97.4 97.8 97.7 97.4 97.8 Pulse 63 75 89 Resp 20 19 20 B/P (MAP) 140/71 (94) 169/82 (111) 163/94 (117) Pulse Ox 98 97 O2 Delivery Room Air Room Air Room Air 12/30/16 12/31/16 12/31/16 23:35 03:40 07:00 Temp 97.9 98.0 97.4 97.9 98.0 97.4 Pulse 101 75 73 Resp 18 18 20 B/P (MAP) 150/76 (100) 147/88 (107) 151/85 (107) Pulse Ox 97 96 92 O2 Delivery Room Air Room Air Room Air Intake and Output 12/30/16 12/30/1612/31/17 15:00 23:00 07:00 Intake Total 300 ml 390 ml Balance 300 ml 390 ml TERRELL SOSA MD December 31, 2016 09:51
--- NOTE | 2016-12-31 10:39 | PDOC ---
Provider Note Provider Note Troponin peak 7.729. Patient CP free. Heparin infusing per protocol. Given history/risk factors and symptomatology in the setting of elevated troponin, cardiac cath indicated. R/b/a discussed with patient and is agreeable. Discussed with primary split and drum room supervisor. Will plan for coronary angiogram today. Records obtained: - [facility] 11/2008 with normal coronaries without obstruction. - [facility] 10/22 at revealed normal appears coronary arteries with the exception of the mid to distal segment of the second diagonal branch. ELYSE SOLIS APRN December 31, 2016 10:39
[2016-12-31] MEDS ORDERED: LIDOCAINE 2% 20 ML VIAL. ONE (15:32)
[2016-12-31] MEDS ORDERED: IOHEXOL 300 MG/ML 100ML VIAL. ONE ×2 (15:33→16:26)
[2016-12-31] MEDS ORDERED: MIDAZOLAM HCL/PF 2 MG/2 ML VIAL. ONE ×3 (15:47→16:43)
[2016-12-31] MEDS ORDERED: HEPARIN for IV BOLUS 10,000 UNIT/10 ML VIAL. ONE (15:47)
[2016-12-31] MEDS ORDERED: NITROGLYCERIN 200 MCG/2 ML SYRINGE FOR CATH/VASC LAB. ONE (15:47)
[2016-12-31] MEDS ORDERED: fentaNYL PF VIAL 100 MCG/2 ML VIAL ONE ×2 (15:47→16:43)
[2016-12-31] MEDS ORDERED: VERAPAMIL 5 MG/2 ML VIAL. ONE ×2 (15:47→16:42)
--- NOTE | 2016-12-31 15:47 | CARD ---
APPROVED REPORT EXAM: Two-dimensional and M-mode echocardiogram with Doppler and color Doppler. Other Information Quality : Average Rhythm : NSR INDICATION Chest Pain 2D DIMENSIONS RVDd3.3 (2.9-3.5cm)Left Atrium(2D)3.3 (1.6-4.0cm) IVSd1.2 (0.7-1.1cm)Aortic Root(2D)2.7 (2.0-3.7cm) LVDd4.3 (3.9-5.9cm)LVOT Diameter2.0 (1.8-2.4cm) PWd1.2 (0.7-1.1cm)LVDs3.4 (2.5-4.0cm) SV36.3 mlLVEF(%)53.2 (>50%) Aortic Valve AoV Peak Ion.104.3cm/sAoV VTI23.3cm AO Peak GR.4.4mmHgLVOT Peak Ion.61.1cm/s LVOT VTI 12.50cmAO Mean GR.3mmHg Mitral Valve MV E Lsghdtgj47.8cm/sMV DECEL NESE173fb MV A Sjwnqpdh97.4cm/sMV FLL59lz E/A Ratio0.9MV A Kyhbfsel673ou MVA (PHT)3.74cm2 TDI E/Lateral E'11.3E/Medial E'13.2 Pulmonary Valve PV Peak Fswuvaax09.9cm/sPV Peak Grad.3mmHg RVOT VTI15.1cm LEFT VENTRICLE The left ventricle is normal size. There is borderline concentric left ventricular hypertrophy. Left ventricle systolic function is normal. The Ejection Fraction is 50-55%. There is normal LV segmental wall motion. The left ventricular diastolic function and filling is normal for age. There is no ventr icular septal defect visualized. RIGHT VENTRICLE The right ventricle is normal size. The right ventricular systolic function is normal. ATRIA The left atrium size is normal. The right atrium size is normal. The interatrial septum is intact wit h no evidence for an atrial septal defect or patent foramen ovale as noted on 2-D or Doppler imaging. AORTIC VALVE The aortic valve is normal in structure and function. The aortic valve is trileaflet. Doppler and Col or Flow revealed no significant aortic regurgitation. There is no significant aortic valvular stenosi s. MITRAL VALVE The mitral valve is normal in structure and function. There is no mitral valve stenosis. Doppler and Color Flow revealed no mitral valve regurgitation noted. TRICUSPID VALVE The tricuspid valve is normal in structure and function. Doppler and Color Flow revealed no tricuspid valve regurgitation noted. Unable to estimate PA pressure. There is no tricuspid valve stenosis. PULMONIC VALVE The pulmonic valve is not well visualized. Doppler and Color Flow revealed no pulmonic valvular regur gitation. There is no pulmonic valvular stenosis. GREAT VESSELS The aortic root is normal in size. Normal pulmonary venous flow (Doppler). The IVC is normal in size and collapses >50% with inspiration. PERICARDIAL EFFUSION There is no evidence of significant pericardial effusion. Critical Notification Critical Value: No <Conclusion> Left ventricle systolic function is normal. The Ejection Fraction is 50-55%. There is normal LV segmental wall motion. No significant valvular disease Technically difficult study
[2016-12-31] MEDS ORDERED: VERAPAMIL 5 MG/2 ML VIAL. IART ONE ×2 (16:00→16:45)
[2016-12-31] MEDS ORDERED: NITROGLYCERIN 200 MCG/2 ML SYRINGE FOR CATH/VASC LAB. IART ONE (16:00)
[2016-12-31] MEDS ORDERED: IOHEXOL 300 MG/ML 100ML VIAL. IART ONE (16:00)
[2016-12-31] MEDS ORDERED: LIDOCAINE 2% 20 ML VIAL. IJ ONE (16:00)
[2016-12-31] MEDS ORDERED: HEPARIN for IV BOLUS 10,000 UNIT/10 ML VIAL. IART ONE (16:00)
[2016-12-31] MEDS ORDERED: CONTRAST GIVEN MC PRN (16:15)
[2016-12-31] MEDS ORDERED: NITROGLYCERIN 200 MCG/2 ML SYRINGE FOR CATH/VASC LAB. ICAR ONE (16:45)
[2016-12-31] MEDS ORDERED: MIDAZOLAM HCL/PF 2 MG/2 ML VIAL. IV ONE (16:45)
[2016-12-31] MEDS ORDERED: fentaNYL PF VIAL 100 MCG/2 ML VIAL IV ONE (16:45)
[2016-12-31] MEDS: LABETALOL 20 MG/4 ML DISP.SYRIN. IVP PRN (18:27)
--- NOTE | 2016-12-31 18:50 | CARD ---
APPROVED REPORT Procedure(s) performed: Left Heart Catheterization + Coronary angiography HISTORY The patient is a 41 year-old female with a history of : previous LA, hypertension, dyslipidemia. INDICATION The indication(s) include : non-STEMI Trop peak of 7.0. PROCEDURE NARRATIVE The patient was brought electively to the cardiac catheterization lab. A timeout was performed confi rming the patient's name, date of , procedure, and site of procedure. All necessary personnel w ere wearing the appropriate protective equipment and radiation monitor devices. After explaining the risks and benefits of the procedure and alternatives, informed consent was obtained. (See nursing no vadim for medications administered). The right wrist was sterilely prepped and draped in the usual fas hion. The right wrist was infiltrated with 1 mL of 2% lidocaine for subcutaneous anesthesia. A 6 Fr ench Terumo glide sheath was inserted into the right radial artery without difficulty. Right and lef t coronary angiography was performed using a 5FR JR4 and 5FR JL4 catheters. Due to proximal vessel to rtuosity in the aortic arch there was difficulty engaging the left main and therefore multiple cathet ers were initially attempted including a JL 3.5, AL-1 and 1.5 and a 5 Welsh Nahum catheter. Ultimate ly, a 5 Welsh JL4 catheter was able to engage it. Left ventricular end diastolic pressure was obtai rahel with a pigtail catheter and pullback was performed after left ventriculography. All catheter exc hanges and advancements were performed over a guidewire. At case completion the right radial sheath was removed and a Terumo radial band was applied with 13 ml of air. The patient tolerated the proced ure well and there were no immediate complications. HEMODYNAMICS: LVEDP 20 mm Hg No gradient on LV to aortic pullback. CORONARY ANGIOGRAPHY: LM is a large caliber vessel with normal angiograhpic appearance. LAD is a large caliber vessel with normal angiographic appearance until the distal aspect where is a long segment of 90% stenosis and the apical LAD is approximately 2.0 mm in size. D1 is a large caliber vessel with normal angiographic apeparance. LCx is a large caliber non-dominant vessel with normal angiographic appearance. RCA is a large caliber dominant vessel with normal angiographic appearance. RPDA and RPL are moderate caliber vessels with normal angiographic appearance. Despite multiple vasodilators (NTG, Verapamil) given intracoronary route, the distal LAD stenosis was persistent. A discussion was held with the patient's primary audiology director Dr. Billy. Given that th e patient's apical LAD was small in caliber, it was felt that stenting the distal LAD might initially cause more complications. Furthermore, the patient was chest pain free and her troponin was downtren ding. Also, patient has had previous heart catheterizations for elevated troponin during which she wa s found to have normal angiographic appearance, suggestive of possible endothelial dysfunction. There fore, it was decided that she would initially benefit from short term aggressive medical therapy to i nclude (ASA, Plavix, Statins and calcium channel blockers/josefa-inh). Based on patient's symptoms, will consider repeat heart cath in 4-6 weeks. Conclusion 1. One vessel CAD involving the distal LAD. Due to small vessel size and tortuousity, it was felt lizzy t the lesion should be initially treated medically, with consideration of high risk stenting based on symptoms. 2. Overall presentation consistent with severe endothelial dysfunction in the setting of metabolic sy ndrome. Recommendations Consider repeat cath in 4-6 weeks after aggressive medical therapy to include ASA, Plavix, statins, A ce-inh and Calcium channel andra.
[2016-12-31] MEDS: HYDROcodone/APAP 5/325MG 1 TAB TABLET PO PRN (21:16)
[2017-01-01 03:03] VITALS: BP 135/64
[2017-01-01 07:00] VITALS: BP 132/74
[2017-01-01] MEDS: HYDROcodone/APAP 5/325MG 1 TAB TABLET PO PRN ×2 (07:13→14:04)
[2017-01-01 11:05] VITALS: BP 139/78
--- NOTE | 2017-01-01 11:30 | PDOC ---
CARDIO Progress Notes Date and Time Date of Service 01/01/17 Time of Evaluation 1215 Subjective Subjective: No Chest Pain, No shortness of breath, No Palpitations Vitals Vitals Vital Signs Date Time Temp Pulse Resp B/P (MAP) Pulse Ox O2 Delivery O2 Flow Rate FiO2 01/01/17 11:05 98.5 84 20 139/78 (98) 98 Room Air 98.5 Weight Weight [ ] Input and Output Intake and Output Intake and Output 01/01/17 07:00 Intake Total 942 ml Output Total 200 ml Balance 742 ml Intake Oral 740 ml IV Total 202 ml Output Urine Total 200 ml # Voids 3 Laboratory Labs Laboratory Tests Test 12/31/16 12:00 Heparin Anti-Xa Act, Unfractionated 0.66 IU/mL (0.30-0.70) Physical Exam HEENT: Neck Supple W Full Motion Chest: Symmetric LUNGS: Clear to Auscultation Heart: S1S2, RRR, no thrills, no rubs, no gallops Abdomen: Soft N/T, Other (obese ) Extremities: Other (trace LE edema bilaterally. Right radial arteriotomy site soft, clean, and dry. No s/s of hematoma. Neurovascular status intact. ) Neurology: alert, oriented, follow commands Assessment Assessment 1. Chest pain; resolved 2. NSTEMI; trop peak 7.729. Echo with preserved LV function with an EF of 50-55 % 3. CAD; cath revealed one-vessel CAD involved LAD 4. Hypertension; controlled 5. Hyperlipidemia; LDL= 87 6. Obesity; BMI 51 7. Metabolic syndrome Recommendations Due to small vessel size and tortuousity of LAD, will treat medically for now. Aggressive medical therapy to include ASA, Plavix, statin, LOKI, BB, and CCB. Consider repeat cath with possibility of high risk stenting based on symptoms; will follow on an outpatient basis. May discharge form a cardiac standpoint and f/u in our office with Dr. Billy in 4 weeks. Discussed importance of medical compliance. Maintain BP control Risk stratification modification; weight reduction ELYSE SOLIS APRN January 01, 2017 11:30
--- NOTE | 2017-01-01 13:21 | PDOC ---
PROGRESS NOTES Chief Complaint Chief Complaint CC: chest pain A/P Chest pain, ? unstable angina, On heparin gtt, Planning for left heart catheterization NSTEMI Plan ACS Protocol, heparin Cath today, Pain free labs reviewed. History of Present Illness History of Present Illness no chest pain no fever no chills. Vitals Vitals Vital Signs Date Time Temp Pulse Resp B/P (MAP) Pulse Ox O2 Delivery O2 Flow Rate FiO2 01/01/17 11:05 98.5 84 20 139/78 (98) 98 Room Air 98.5 Physical Exam General: Alert, Oriented X3, No acute distress Heart: Regular rate, Normal S1, Normal S2 Abdomen: Normal bowel sounds Extremities: No clubbing Skin: No rashes, No breakdown, No significant lesion Assessment and Plan Assessmemt and Plan Problems Medical Problems: (1) Chest pain Status: Acute (2) Elevated troponin Status: Acute Problems: Comment Review of Relevant I have reviewed the following items ashley (where applicable) has been applied. Labs Laboratory Tests Test 12/30/16 15:20 12/30/16 21:45 12/31/16 05:30 12/31/16 12:00 Heparin Anti-Xa Act, Unfractionated < 0.10 IU/mL (0.30-0.70) 0.89 IU/mL (0.30-0.70) 0.52 IU/mL (0.30-0.70) 0.66 IU/mL (0.30-0.70) Troponin I Quantitative 7.729 ng/mL (0.000-0.055) 4.530 ng/mL (0.000-0.055) 2.331 ng/mL (0.000-0.055) Triglycerides Level 68 mg/dL (0-150) Cholesterol Level 136 mg/dL (0-200) LDL Cholesterol, Calculated 87 mg/dL (0-100) VLDL Cholesterol, Calculated 14 mg/dL (0-40) Non-HDL Cholesterol Calculated 101 mg/dL (0-129) HDL Cholesterol 35 mg/dL (40-60) Cholesterol/HDL Ratio 3.9 Medications Current Medications Nitroglycerin (Nitrostat) 0.4 mg PRN Q5MIN PRN SL CHEST PAIN Last administered on 12/30/16t 08:39; Start 12/30/16 at 08:30 Acetaminophen (Tylenol) 650 mg 1X ONCE PO Last administered on 12/30/16 09:07 ; Start 12/30/16 at 09:00; Stop 12/30/16 at 09:01; Status DC Heparin Sodium (Porcine) (Heparin Sodium) 6,000 unit 1X ONCE IV Last administered on 12/30/16 09:48; Start 12/30/16 at 09:15; Stop 12/30/16 at 09:19 ; Status DC Heparin Sodium/ Dextrose 500 ml @ 0 mls/hr 1X ONCE IV Last administered on 09:51; Start 12/30/16 at 09:15; Stop 12/30/16 at 09:19; Status DC Labetalol HCl (Normodyne) 10 mg PRN Q2HR PRN IVP HYPERTENSION, SEE COMMENTS Last administered on 12/31/16 18:27; Start 12/30/16 at 09:45 Heparin Sodium/ Dextrose 500 ml @ 0 mls/hr CONT PRN IV SEE I/O RECORD Last administered on 12/31/16 08:10; Start 12/30/16 at 14:15; Stop 01/01/17 at 13:19 ; Status DC Heparin Sodium (Porcine) (Heparin Sodium) 3,300 unit PRN Q6HRS PRN IV FOR UFH LEVEL LESS THAN 0.2 Last administered on 12/30/16 17:41; Start 12/30/16 at 14: 15; Stop 01/01/17 at 13:19; Status DC Acetaminophen (Tylenol) 650 mg PRN Q6HRS PRN PO HEADACHE Last administered on 08:35; Start 12/31/16 at 08:30 Lidocaine HCl 20 ml STK-MED ONCE .ROUTE ; Start 12/31/16 at 15:32; Stop at 15:33; Status DC Iohexol (Omnipaque 300 Mg/ml) 100 ml STK-MED ONCE .ROUTE ; Start 12/31/16 at 15: 33; Stop 12/31/16 at 15:34; Status DC Heparin Sodium/ Sodium Chloride 1,000 ml @ As Directed STK-MED ONCE .ROUTE ; Start 12/31/16 at 15:33; Stop 12/31/16 at 15:34; Status DC Nitroglycerin (Nitroglycerin) 200 mcg STK-MED ONCE .ROUTE ; Start 12/31/16 at 15 :47; Stop 12/31/16 at 15:48; Status DC Verapamil HCl (Verapamil) 5 mg STK-MED ONCE .ROUTE ; Start 12/31/16 at 15:47; Stop 12/31/16 at 15:48; Status DC Midazolam HCl (Versed) 2 mg STK-MED ONCE .ROUTE ; Start 12/31/16 at 15:47; Stop 12/31/16 at 15:48; Status DC Fentanyl Citrate (Fentanyl 2ml Vial) 100 mcg STK-MED ONCE .ROUTE ; Start at 15:47; Stop 12/31/16 at 15:48; Status DC Heparin Sodium (Porcine) (Heparin Sodium) 10,000 unit STK-MED ONCE .ROUTE ; Start 12/31/16 at 15:47; Stop 12/31/16 at 15:48; Status DC Nitroglycerin (Nitroglycerin) 200 mcg 1X ONCE IART Last administered on 17:09; Start 12/31/16 at 16:00; Stop 12/31/16 at 16:09; Status DC Verapamil HCl (Verapamil) 2.5 mg 1X ONCE IART Last administered on 12/31/16 17:10; Start 12/31/16 at 16:00; Stop 12/31/16 at 16:09; Status DC Heparin Sodium (Porcine) (Heparin Sodium) 2,500 unit 1X ONCE IART Last administered on 12/31/16 17:16; Start 12/31/16 at 16:00; Stop 12/31/16 at 16:09 ; Status DC Heparin Sodium/ Sodium Chloride 1,000 unit 1X ONCE IART Last administered on 17:08; Start 12/31/16 at 16:00; Stop 12/31/16 at 16:09; Status DC Heparin Sodium/ Sodium Chloride 1,000 unit 1X ONCE IART Last administered on 17:08; Start 12/31/16 at 16:00; Stop 12/31/16 at 16:09; Status DC Iohexol (Omnipaque 300 Mg/ml) 100 ml 1X ONCE IART Last administered on 17:08; Start 12/31/16 at 16:00; Stop 12/31/16 at 16:09; Status DC Lidocaine HCl 20 ml 1X ONCE IJ Last administered on 12/31/16 17:08; Start at 16:00; Stop 12/31/16 at 16:09; Status DC Info (Do NOT chart on this entry -- for MONITORING) 1 each PRN DAILY PRN MC SEE COMMENTS; Start 12/31/16 at 16:15; Stop 01/02/17 at 16:14 Midazolam HCl (Versed) 2 mg STK-MED ONCE .ROUTE ; Start 12/31/16 at 16:10; Stop 12/31/16 at 16:11; Status DC Iohexol (Omnipaque 300 Mg/ml) 100 ml STK-MED ONCE .ROUTE ; Start 12/31/16 at 16: 26; Stop 12/31/16 at 16:27; Status DC Verapamil HCl (Verapamil) 5 mg STK-MED ONCE .ROUTE ; Start 12/31/16 at 16:42; Stop 12/31/16 at 16:43; Status DC Midazolam HCl (Versed) 2 mg STK-MED ONCE .ROUTE ; Start 12/31/16 at 16:43; Stop 12/31/16 at 16:44; Status DC Fentanyl Citrate (Fentanyl 2ml Vial) 100 mcg STK-MED ONCE .ROUTE ; Start at 16:43; Stop 12/31/16 at 16:44; Status DC Nitroglycerin (Nitroglycerin) 400 mcg 1X ONCE ICAR Last administered on 17:15; Start 12/31/16 at 16:45; Stop 12/31/16 at 17:13; Status DC Verapamil HCl (Verapamil) 5 mg 1X ONCE IART Last administered on 12/31/16 17: 15; Start 12/31/16 at 16:45; Stop 12/31/16 at 17:13; Status DC Midazolam HCl (Versed) 5 mg 1X ONCE IV Last administered on 12/31/16 17:17; Start 12/31/16 at 16:45; Stop 12/31/16 at 17:15; Status DC Fentanyl Citrate (Fentanyl 2ml Vial) 150 mcg 1X ONCE IV Last administered on 17:17; Start 12/31/16 at 16:45; Stop 12/31/16 at 17:15; Status DC Acetaminophen/ Hydrocodone Bitart (Lortab 5/325) 1 tab PRN Q4HRS PRN PO PAIN Last administered on 01/01/17t 07:13; Start 12/31/16 at 21:00 Active Scripts Active Reported Vitamin B-12 (Cyanocobalamin (Vitamin B-12)) 1,000 Mcg Tablet 500 Mcg PO NITROGLYCERIN SubLingual (Nitroglycerin) 0.4 Mg Tab.subl 0.4 Mg SL PRN Q5MIN PRN Pepcid (Famotidine) 20 Mg Tablet 20 Mg PO BID Clopidogrel (Clopidogrel Bisulfate) 75 Mg Tablet 1 Tab PO DAILY Aspirin Ec (Aspirin) 81 Mg Tablet.dr 1 Tab PO DAILY Cardizem Cd (Diltiazem Hcl) 180 Mg Cap.er.24h 1 Cap PO DAILY Lisinopril 5 Mg Tablet 1 Tab PO DAILY Simvastatin 10 Mg Tablet 1 Tab PO QHS Coreg (Carvedilol) 3.125 Mg Tablet 1 Tab PO BID Vitals/I & O Vital Sign - Last 24 Hours 12/31/16 12/31/16 12/31/16 12/31/16 17:02 17:10 17:15 17:17 Pulse 89 80 80 Resp 19 19 B/P (MAP) 167/103 167/103 Pulse Ox 99 98 O2 Delivery Room Air Room Air 12/31/16 12/31/16 12/31/16 12/31/16 17:33 17:43 17:48 18:03 Temp 98.1 98.1 Pulse 64 65 84 Resp 18 18 18 18 B/P (MAP) 162/91 (114) 153/90 (111) 159/95 (116) Pulse Ox 97 98 97 97 O2 Delivery Room Air Room Air Room Air Room Air 12/31/16 12/31/16 12/31/16 12/31/16 18:27 18:29 18:51 19:00 Temp 98.3 98.3 Pulse 84 67 68 66 Resp 18 18 18 B/P (MAP) 176/93 162/91 (114) 157/88 (111) 122/68 (86) Pulse Ox 97 97 96 O2 Delivery Room Air Room Air Room Air 12/31/16 12/31/16 12/31/16 01/01/17 19:40 21:16 22:52 03:03 Temp 98.6 97.9 98.6 97.9 Pulse 81 74 Resp 16 18 18 B/P (MAP) 133/72 (92) 135/64 (87) Pulse Ox 96 95 97 O2 Delivery Room Air Room Air Room Air Room Air 01/01/17 01/01/17 01/01/17 01/01/17 07:00 07:13 08:00 08:13 Temp 98.7 98.7 Pulse 66 Resp 19 16 17 B/P (MAP) 132/74 (93) Pulse Ox 97 96 96 O2 Delivery Room Air Room Air Room Air Room Air 01/01/17 11:05 Temp 98.5 98.5 Pulse 84 Resp 20 B/P (MAP) 139/78 (98) Pulse Ox 98 O2 Delivery Room Air Intake and Output 12/31/16 12/31/16 01/01/17 15:00 23:00 07:00 Intake Total 442 ml 500 ml Output Total 200 ml Balance 442 ml 300 ml TERRELL SOSA MD January 01, 2017 13:21
[2017-01-01] MEDS ORDERED: CLOPIDOGREL BISULFATE 75 MG TABLET PO SCH (13:30)
[2017-01-01] MEDS ORDERED: ASPIRIN ENTERIC COATED 81 MG TABLET.DR. PO SCH (13:30)
[2017-01-01] MEDS ORDERED: amLODIPine BESYLATE 5 MG TABLET PO SCH (13:30)
[2017-01-01] MEDS ORDERED: LISINOPRIL 5 MG TABLET. PO SCH (13:30)
[2017-01-01] MEDS ORDERED: HYDR-2666 PO (14:12)
[2017-01-01 14:33] VITALS: BP 143/69
[2017-01-01] MEDS ORDERED: AMLO5TAB4 PO (15:42)
[2017-01-01] MEDS ORDERED: ATOR40TA PO (15:42)
[2017-01-01] MEDS ORDERED: ATORVASTATIN CALCIUM 20 MG TABLET PO SCH (21:00)
[2017-01-01] MEDS ORDERED: METOPROLOL TART IMMED RELEASE 25 MG TABLET. PO SCH (21:00)
== END 2017-01-01 19:00 | disposition home or self-care (01) | DRG 281 ==
LOC: ER 08:50 → 2 NORTH 09:40
PROVIDERS: ADMIT Internal Medicine; ATTEND Internal Medicine
PROC: 4A023N7 Measurement of Cardiac Sampling and Pressure, Left Heart, Percutaneous Approach (ICD-10-PCS; principal; 2016-12-31)
PROC: B2111ZZ Fluoroscopy of Multiple Coronary Arteries using Low Osmolar Contrast (ICD-10-PCS; 2016-12-31)
PROC: B2151ZZ Fluoroscopy of Left Heart using Low Osmolar Contrast (ICD-10-PCS; 2016-12-31)
DX: I21.4 Non-ST elevation (NSTEMI) myocardial infarction (principal); Z68.43 Body mass index [BMI] 50.0-59.9, adult; E66.01 Morbid (severe) obesity due to excess calories; E78.00 Pure hypercholesterolemia, unspecified; E78.5 Hyperlipidemia, unspecified; I10 Essential (primary) hypertension; I16.0 Hypertensive urgency; I25.2 Old myocardial infarction; K21.9 Gastro-esophageal reflux disease without esophagitis; Z82.49 Family history of ischemic heart disease and other diseases of the circulatory system; Z90.49 Acquired absence of other specified parts of digestive tract; E88.81 Metabolic syndrome and other insulin resistance; I25.110 Atherosclerotic heart disease of native coronary artery with unstable angina pectoris
CPT/HCPCS: 36415; 71010; 80053; 80061; 82553; 84484; 84703; 85027; 85379; 85520; 85610; 85730; 93005; 93306; 93458; 96374; C1769; C1892; J2250; J3010; J3490; Q9967; 99285-25

== ENCOUNTER 2017-02-25 11:50 | Emergency (ER) | payer OTHER ==
[~2017-02-25] VITALS: Ht 154.9 cm; Wt 127.0 kg
[~2017-02-25 11:50] MED LIST: AMLO5TAB4 PO; ASPI-612 PO; ATOR40TA PO; CARV3.12 PO; CLIN50GE TP; CLOP75TA PO; CYAN10005 PO; DILT180C2 PO; FAMO-63 PO; HYDR-2758 PO; LISI-338 PO; NITR0.4T22 SL; SIMV10TA3 PO
[2017-02-25] MEDS ORDERED: HYDROmorphone 2 MG/ML VIAL IV PRN (12:15)
[2017-02-25] MEDS ORDERED: diphenhydrAMINE 50 MG/ML VIAL IVP ONE (12:30)
[2017-02-25] MEDS ORDERED: METOCLOPRAMIDE HCL 10 MG/2 ML VIAL. IV ONE (12:30)
[2017-02-25] MEDS ORDERED: IV NORMAL SALINE 1000ML BAG 1,000 ML IV ONE (12:30)
[2017-02-25 12:32] LABS: BILIRUBIN,URINE NEGATIVE (NEG); GLUCOSE,URINE NEGATIVE (NEG); NITRITE,URINE NEGATIVE (NEG); PH,URINE 7.5; PROTEIN,URINE NEGATIVE (NEG-TRACE)
[2017-02-25 12:43] LABS: RBC,URINE OCC /HPF (0-2)
[2017-02-25 12:44] LABS: BACTERIA,URINE MODERATE /HPF (0-FEW); SQUAMOUS EPITHELIAL CELL,UR MOD /LPF
[2017-02-25 13:00] LABS: BASO % 0 % (0-3); EOS % 0 % (0-3); HEMATOCRIT 36.5 % (36.0-47.0); HEMOGLOBIN 12.1 g/dL (12.0-15.5); LYMPH # 1.3 x10^3/uL (1.0-4.8); LYMPH % 18 % (24-48); MEAN CORPUSCULAR HEMOGLOBIN 28 pg (25-35); MEAN CORPUSCULAR HGB CONC 33 g/dL (31-37); MEAN CORPUSCULAR VOLUME 84 fL (79-100); MONO % 3 % (0-9); NEUT % 79 % (31-73); PLATELET COUNT 329 x10^3/uL (140-400); RED BLOOD COUNT 4.33 x10^6/uL (3.50-5.40); RED CELL DISTRIBUTION WIDTH 14.3 % (11.5-14.5); WHITE BLOOD COUNT 7.1 x10^3/uL (4.0-11.0)
[2017-02-25 13:10] LABS: CALCIUM 8.9 mg/dL (8.5-10.1); CREATININE 0.7 mg/dL (0.6-1.0); POTASSIUM 3.9 mmol/L (3.5-5.1)
[2017-02-25 13:16] LABS: ALBUMIN 3.6 g/dL (3.4-5.0); ALBUMIN/GLOBULIN RATIO 0.9 (1.0-1.7); TOTAL BILIRUBIN 0.3 mg/dL (0.2-1.0); TOTAL PROTEIN 7.8 g/dL (6.4-8.2)
[2017-02-25 15:06] VITALS: BP 144/65
--- NOTE | 2017-02-25 15:21 | PHYS DOC ---
Past Medical History Past Medical History: CAD, High Cholesterol, Hypertension, [place] Past Surgical History: Cholecystectomy, Other Additional Past Surgical Histo: cardiac cath, no stents placed. Alcohol Use: None Drug Use: None Adult General Chief Complaint Chief Complaint: NAUSEA/VOMITING/DIARRHA HPI HPI 42 yo F presenting to the ED today with N/V and mild headache over the past 2 days. She reports feeling nauseous when she woke up this morning. She tried to go to work however at work she felt that her symptoms are worsening. She had worsening nausea with a few episodes of nonbilious nonbloody emesis. She also started developing a mild headache. The headache was not sudden in onset. She denies numbness weakness or tingling. She denies vision changes. She describes the headache is mild nonradiating intermittent and associated with the nausea and without alleviating factors. She denies being . She Review of systems was negative for chest pain shortness of breath abdominal pain fevers chills cough. She denies diaphoresis. All other review of systems is negative unless otherwise noted in history of present illness. ED course: 42-year-old female presenting with nausea vomiting and a mild headache over the past 2 days. Nursing note states the pt is lethargic. Pt is not lethargic. The patient is obviously awake alert over and eyes spontaneously and follows commands. It also states the pt is in mild distress. Clearly, the patient is not in any distress. Triage vital signs afebrile with a normal heart rate. Blood pressure is elevated. On pertinent physical exam findings. The patient has normal range of motion of the neck. Negative Brudzinski sign. Negative Kernig sign. Abdomen is soft and nontender palpation. I reviewed the patient's EKG which was unremarkable largely. There was documentation of a bundle branch. I can see why they would say that however the patient's QRSs less than 80 ms. The morphology has an R S R' however does not meet criteria for bundle branch. EKG shows sinus rhythm with a regular rate. Leftward axis. Intervals are within normal limits. ST segments otherwise congruent. Not suggestive of ACS. EKG and blood work unremarkable. Workup unremarkable. On reexamination the patient received Reglan and Benadryl with fluids and she was feeling much better. She was able to walk in the emergency department, passing ambulatory trial. The patient was in discharged home to follow-up with her doctor in the next few days. The patient was then discharged home in stable condition to follow up with their primary care physician over the next 2-3 days. They were to return if their symptoms worsened or if they were concerned for any reason. [id number] discharge instructions and return precautions were given. Patient's questions were answered to their satisfaction. Patient is comfortable plan. Review of Systems Review of Systems SEE ABOVE. Current Medications Current Medications Current Medications Medications (Trade) Dose Ordered Sig/Kristopher Start Time Stop Time Status Last Admin Dose Admin Diphenhydramine HCl (Benadryl) 25 mg 1X ONCE 02/25/17 12:30 02/25/17 12:31 DC 02/25/17 13:01 25 MG Hydromorphone HCl (Dilaudid) 0.5 mg PRN Q1HR PRN 02/25/17 12:15 02/25/17 13:02 0.5 MG Metoclopramide HCl (Reglan) 10 mg 1X ONCE 02/25/17 12:30 02/25/17 12:31 DC 02/25/17 13:01 10 MG Sodium Chloride 1,000 ml @ 1,000 mls/hr 1X ONCE 02/25/17 12:30 02/25/17 13:29 DC 02/25/17 13:01 1,000 MLS/HR Allergies Allergies Allergies Coded Allergies Type Severity Reaction Last Updated Verified No Known Drug Allergies 04/07/14 No Physical Exam Physical Exam SEE ABOVE Constitutional: Well developed, well nourished, no acute distress, non-toxic appearance. [] HENT: Normocephalic, atraumatic, bilateral external ears normal, oropharynx moist, no oral exudates, nose normal. [] Eyes: PERRLA, EOMI, conjunctiva normal, no discharge. [] Neck: Normal range of motion, no tenderness, supple, no stridor. [] Cardiovascular:Heart rate regular rhythm, no murmur [] Lungs & Thorax: Bilateral breath sounds clear to auscultation [] Abdomen: Bowel sounds normal, soft, no tenderness, no masses, no pulsatile masses. [] Skin: Warm, dry, no erythema, no rash. [] Back: No tenderness, no CVA tenderness. [] Extremities: No tenderness, no cyanosis, no clubbing, ROM intact, no edema. [] Neurologic: Alert and oriented X 3, normal motor function, normal sensory function, no focal deficits noted. [] Psychologic: Affect normal, judgement normal, mood normal. [] Current Patient Data Vital Signs Vital Signs Date Time Temp Pulse Resp B/P (MAP) Pulse Ox O2 Delivery O2 Flow Rate FiO2 02/25/17 15:06 91 20 144/65 (91) 95 Room Air 02/25/17 11:55 97.8 97.8 Lab Values Laboratory Tests Test 02/25/17 11:12 02/25/17 12:00 02/25/17 12:55 POC Urine HCG, Qualitative Hcg negative (Negative) Urine Collection Type Unknown Urine Color Yellow Urine Clarity Clear Urine pH 7.5 Urine Specific [place]an 1.015 Urine Protein Negative mg/dL (NEG-TRACE) Urine Glucose (UA) Negative mg/dL (NEG) Urine Ketones (Stick) Negative mg/dL (NEG) Urine Blood Negative (NEG) Urine Nitrite Negative (NEG) Urine Bilirubin Negative (NEG) Urine Urobilinogen Dipstick 1.0 mg/dL (0.2 mg/dL) Urine Leukocyte Esterase Negative (NEG) Urine RBC Occ /HPF (0-2) Urine WBC 1-4 /HPF (0-4) Urine Squamous Epithelial Cells Mod /LPF Urine Bacteria Moderate /HPF (0-FEW) Urine Mucus Slight /LPF White Blood Count 7.1 x10^3/uL (4.0-11.0) Red Blood Count 4.33 x10^6/uL (3.50-5.40) Hemoglobin 12.1 g/dL (12.0-15.5) Hematocrit 36.5 % (36.0-47.0) Mean Corpuscular Volume 84 fL (79-100) Mean Corpuscular Hemoglobin 28 pg (25-35) Mean Corpuscular Hemoglobin Concent 33 g/dL (31-37) Red Cell Distribution Width 14.3 % (11.5-14.5) Platelet Count 329 x10^3/uL (140-400) Neutrophils (%) (Auto) 79 % (31-73) H Lymphocytes (%) (Auto) 18 % (24-48) L Monocytes (%) (Auto) 3 % (0-9) Eosinophils (%) (Auto) 0 % (0-3) Basophils (%) (Auto) 0 % (0-3) Neutrophils # (Auto) 5.6 x10^3uL (1.8-7.7) Lymphocytes # (Auto) 1.3 x10^3/uL (1.0-4.8) Monocytes # (Auto) 0.2 x10^3/uL (0.0-1.1) Eosinophils # (Auto) 0.0 x10^3/uL (0.0-0.7) Basophils # (Auto) 0.0 x10^3/uL (0.0-0.2) Sodium Level 140 mmol/L (136-145) Potassium Level 3.9 mmol/L (3.5-5.1) Chloride Level 103 mmol/L (98-107) Carbon Dioxide Level 26 mmol/L (21-32) Anion Gap 11 (6-14) Blood Urea Nitrogen 7 mg/dL (7-20) Creatinine 0.7 mg/dL (0.6-1.0) Estimated GFR (Cockcroft-Gault) 110.0 BUN/Creatinine Ratio 10 (6-20) Glucose Level 98 mg/dL (70-99) Calcium Level 8.9 mg/dL (8.5-10.1) Total Bilirubin 0.3 mg/dL (0.2-1.0) Aspartate Amino Transferase (AST) 18 U/L (15-37) Alanine Aminotransferase (ALT) 18 U/L (14-59) Alkaline Phosphatase 114 U/L (46-116) Troponin I Quantitative < 0.017 ng/mL (0.000-0.055) Total Protein 7.8 g/dL (6.4-8.2) Albumin 3.6 g/dL (3.4-5.0) Albumin/Globulin Ratio 0.9 (1.0-1.7) L Lipase 78 U/L (73-393) Laboratory Tests 02/25/17 12:55 Laboratory Tests 02/25/17 12:55 EKG EKG [] Radiology/Procedures Radiology/Procedures [] Course & Med Decision Making Course & Med Decision Making Pertinent Labs and Imaging studies reviewed. (See chart for details) [] Dragon Disclaimer Dragon Disclaimer This electronic medical record was generated, in whole or in part, using a voice recognition dictation system. Departure Departure Impression: Primary Impression: Nausea & vomiting Additional Impression: Headache Disposition: 01 HOME, SELF-CARE Condition: STABLE Referrals: NO PCP (PCP) ARMIDA VILLAVICENCIO MD Patient Instructions: General Headache Without Cause, [id number], Nausea and Vomiting Additional Instructions: Thank you for allowing us to participate in your care today. Be sure to drink lots of fluids. Return if you are concerned. Followup with your primary care physician in 3 days if your symptoms do not improve. Call your Primary Doctor tomorrow and inform them of your visit today. If you do not have a primary care provider you can ask for a list of our primary care providers. Return to the emergency department you have any new or concerning findings. This should be evaluated by the primary care physician and any necessary consulting services for continued management within a few days after discharge. Return to emergency room if you have any new or concerning symptoms including but not limited to fever, chills, nausea, vomiting, intractable pain, any new rashes, chest pain, shortness of air, uncontrolled bleeding, difficulty breathing, and/or vision loss. Problem Qualifiers CLOVER APPIAH MD Feb 25, 2017 15:21
--- NOTE | 2017-02-25 15:40 | EKG ---
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
== END 2017-02-25 15:33 | disposition home or self-care (01) ==
LOC: ER 11:50
DX: R11.2 Nausea with vomiting, unspecified (principal); R51 Headache; I25.10 Atherosclerotic heart disease of native coronary artery without angina pectoris; E78.00 Pure hypercholesterolemia, unspecified; I10 Essential (primary) hypertension; I25.2 Old myocardial infarction; Z90.49 Acquired absence of other specified parts of digestive tract
CPT/HCPCS: 36415; 80053; 81001; 81025; 83690; 84484; 85027; 87086; 93005; 96361; 96374; 96375; 99285; J1170; J1200; J2765; J7030

== ENCOUNTER 2019-05-15 11:34 | Emergency (ER) | payer OTHER ==
[~2019-05-15] VITALS: Ht 157.5 cm; Wt 127.0 kg
[~2019-05-15 11:34] MED LIST changes: +CYAN-25 PO; -CYAN10005 PO; -HYDR-2758 PO; +HYDR-2761 PO
[2019-05-15] MEDS ORDERED: IV NORMAL SALINE 1000ML BAG 1,000 ML IV ONE (12:30)
[2019-05-15] MEDS ORDERED: MORPHINE SULFATE 4 MG/ML VIAL. IV ONE (12:30)
[2019-05-15] MEDS ORDERED: ONDANSETRON PF 4 MG/2 ML VIAL. IV ONE (12:30)
[2019-05-15] MEDS ORDERED: ORPHENADRINE CITRATE 60 MG/2 ML VIAL. IV ONE (12:30)
--- NOTE | 2019-05-15 12:34 | PHYS DOC ---
Past Medical History Past Medical History: CAD, High Cholesterol, Hypertension, [place] Past Surgical History: Cholecystectomy, Other Additional Past Surgical Histo: cardiac cath, no stents placed. Alcohol Use: None Drug Use: None Adult General Chief Complaint Chief Complaint: BACK PAIN OR INJURY HPI HPI Patient is a 44 year old female that presents with multiple symptoms. The patient states she's been having head pressure, dizziness, bilateral eye pain, and the feeling of a bruit accompanied by neck pain. The patient states his been ongoing for several days that she also has some back pain. She rates her pain as 8 out of 10 in severity and sharp. She states she has accompanied complaint symptoms of nausea. The patient is noncompliant has not been taking medicine that she's been instructed to. Patient is a poor historian. Review of Systems Review of Systems Constitutional: Denies fever or chills [] Eyes: Denies change in visual acuity, redness, but reports bilateral eye pain [] HENT: Denies nasal congestion or sore throat [] Respiratory: Denies cough or shortness of breath [] Cardiovascular: No additional information not addressed in HPI [] GI: Reports nausea Denies abdominal pain, vomiting, bloody stools or diarrhea [] : Denies dysuria or hematuria [] Musculoskeletal: Reports back pain or joint pain [] Integument: Denies rash or skin lesions [] Neurologic: Reports bruit, and neck pain. Reports head pressure, Denies focal weakness or sensory changes [] Endocrine: Denies polyuria or polydipsia [] Complete systems were reviewed and found to be within normal limits, except as documented in this note. Current Medications Current Medications Current Medications Medications (Trade) Dose Ordered Sig/Kristopher Start Time Stop Time Status Last Admin Dose Admin Info (CONTRAST GIVEN -- Rx MONITORING) 1 each PRN DAILY PRN 05/15/19 14:00 05/17/19 13:59 Iohexol (Omnipaque 350 Mg/ml) 100 ml STK-MED ONCE 05/15/19 13:56 05/15/19 13:56 DC Morphine Sulfate (Morphine Sulfate) 4 mg 1X ONCE 05/15/19 12:30 05/15/19 12:33 DC 05/15/19 13:24 4 MG Ondansetron HCl (Zofran) 4 mg 1X ONCE 05/15/19 12:30 05/15/19 12:33 DC 05/15/19 13:23 4 MG Orphenadrine Citrate (Norflex) 30 mg 1X ONCE 05/15/19 12:30 05/15/19 12:33 DC 05/15/19 13:23 30 MG Sodium Chloride 1,000 ml @ 1,000 mls/hr 1X ONCE 05/15/19 12:30 05/15/19 13:29 DC 05/15/19 13:30 1,000 MLS/HR Allergies Allergies Allergies Coded Allergies Type Severity Reaction Last Updated Verified No Known Drug Allergies 04/07/14 No Physical Exam Physical Exam Constitutional: Well developed, well nourished, no acute distress, non-toxic appearance. [] HENT: Normocephalic, atraumatic, bilateral external ears normal, oropharynx moist, no oral exudates, nose normal. [] Eyes: PERRLA, EOMI, conjunctiva normal, no discharge. [] Neck: Reduced range of motion, neck tenderness, supple, no stridor. [] Cardiovascular:Heart rate regular rhythm, no murmur [] Lungs & Thorax: Bilateral breath sounds clear to auscultation [] Abdomen: Bowel sounds normal, soft, no tenderness, no masses, no pulsatile masses. [] Skin: Warm, dry, no erythema, no rash. [] Back: trigger point in left upper back, no CVA tenderness. [] Extremities: No tenderness, no cyanosis, no clubbing, ROM intact, no edema. [] Neurologic: Alert and oriented X 3, normal motor function, normal sensory function, no focal deficits noted. [] Psychologic: Affect normal, judgement normal, mood normal. [] Current Patient Data Vital Signs Vital Signs Date Time Temp Pulse Resp B/P (MAP) Pulse Ox O2 Delivery O2 Flow Rate FiO2 05/15/19 15:25 68 13 177/74 (108) 94 Room Air 05/15/19 11:45 98.4 98.4 Lab Values Laboratory Tests Test 05/15/19 13:00 05/15/19 13:15 05/15/19 13:19 White Blood Count 6.9 x10^3/uL (4.0-11.0) Red Blood Count 4.29 x10^6/uL (3.50-5.40) Hemoglobin 11.9 g/dL (12.0-15.5) L Hematocrit 36.3 % (36.0-47.0) Mean Corpuscular Volume 85 fL (79-100) Mean Corpuscular Hemoglobin 28 pg (25-35) Mean Corpuscular Hemoglobin Concent 33 g/dL (31-37) Red Cell Distribution Width 14.5 % (11.5-14.5) Platelet Count 350 x10^3/uL (140-400) Neutrophils (%) (Auto) 61 % (31-73) Lymphocytes (%) (Auto) 34 % (24-48) Monocytes (%) (Auto) 5 % (0-9) Eosinophils (%) (Auto) 1 % (0-3) Basophils (%) (Auto) 0 % (0-3) Neutrophils # (Auto) 4.2 x10^3/uL (1.8-7.7) Lymphocytes # (Auto) 2.3 x10^3/uL (1.0-4.8) Monocytes # (Auto) 0.3 x10^3/uL (0.0-1.1) Eosinophils # (Auto) 0.0 x10^3/uL (0.0-0.7) Basophils # (Auto) 0.0 x10^3/uL (0.0-0.2) Prothrombin Time 13.2 SEC (11.7-14.0) Prothrombin Time INR 1.0 (0.8-1.1) Activated Partial Thromboplast Time 31 SEC (24-38) Sodium Level 141 mmol/L (136-145) Potassium Level 4.1 mmol/L (3.5-5.1) Chloride Level 106 mmol/L (98-107) Carbon Dioxide Level 27 mmol/L (21-32) Anion Gap 8 (6-14) Blood Urea Nitrogen 6 mg/dL (7-20) L Creatinine 0.7 mg/dL (0.6-1.0) Estimated GFR (Cockcroft-Gault) 109.0 BUN/Creatinine Ratio 9 (6-20) Glucose Level 98 mg/dL (70-99) Calcium Level 9.1 mg/dL (8.5-10.1) Total Bilirubin 0.4 mg/dL (0.2-1.0) Aspartate Amino Transferase (AST) 13 U/L (15-37) L Alanine Aminotransferase (ALT) 11 U/L (14-59) L Alkaline Phosphatase 95 U/L (46-116) Total Protein 8.1 g/dL (6.4-8.2) Albumin 3.5 g/dL (3.4-5.0) Albumin/Globulin Ratio 0.8 (1.0-1.7) L Serum Test, Qualitative Negative (NEG) Laboratory Tests 05/15/19 13:00 Laboratory Tests 05/15/19 13:19 EKG EKG EKG interpreted by Dr. Galvez RBBB with rate of 70, No STEMI. Radiology/Procedures Radiology/Procedures [][facility] [address] [place] [address] IMAGING REPORT Signed PATIENT: HOMA GRAY TACCOUNT: [id number] : 1975 LOCATION: ER AGE: 44 SEX: F EXAM STATUS: REG ER ORD. PHYSICIAN: ARMIDA FLOR APRN REASON: dizziness, neck pain, hears bruit PROCEDURE: CT ANGIOGRAPHY HEAD AND NECK Examination: CT ANGIOGRAPHY HEAD AND NECK History: Dizziness, neck pain, bruit Comparison/Correlation: None FINDINGS: Axial images of the head and neck were obtained following IV contrast including arteriography protocol. Maximum intensity projection images were provided. Volume rendered images of the arterial vasculature were provided. No motion is noted at the base of the neck limiting evaluation of the proximal common carotid artery. Streak artifact at the level of the sternoclavicular joints is noted limiting evaluation of the proximal right common carotid artery. Angiographic findings: The aortic arch is unremarkable although aberrant right subclavian artery is noted.. There is no arch vessel stenosis. Both common carotid arteries are patent without stenosis. Both internal carotid arteries are patent without stenosis. The external carotid systems are patent. The vertebral arteries are patent. Left dominant vertebral arteries noted. The basilar artery is patent. Both posterior cerebral arteries are patent. The posterior communicating arteries are visualized. The intracranial internal carotid arteries demonstrate no stenosis. The middle cerebral arteries are patent. The anterior cerebral arteries are patent. The anterior communicating artery is visualized. Nonangiographic findings: There is no intracranial hemorrhage. Cantrell-white differentiation is preserved. The ventricles are normal in size and position. The paranasal sinuses appear clear. The orbits are unremarkable. The temporal bones are unremarkable. Bone windows reveal no suspicious lesions. The lung apices demonstrate no acute abnormality. The parotid glands and submandibular glands are unremarkable. The thyroid gland demonstrates no suspicious lesions. Nonenlarged level 2 lymph nodes bilaterally are present. There are no laryngeal or pharyngeal masses. There are no pathologically enlarged lymph nodes. IMPRESSION: No appreciable plaque identified involving the arterial vasculature of the head and neck. No significant stenosis, dissection, or aneurysm. Evaluation mildly limited as stated above. Nonenlarged bilateral level 2A lymph nodes are present. Aberrant right subclavian artery with retroesophageal course. PQRS Compliance Statement - Stenosis calculations for CT, MR and conventional angiography are based upon measurement of the distal ICA diameter in accordance with the NASCET methodology. Stenosis calculations for carotid ultrasound studies are derived from validated velocity criteria which are known to correlate with the NASCET methodology. *One or more of the following individualized dose reduction techniques were utilized for this examination: 1. Automated exposure control. 2. Adjustment of the mA and/or kV according to patient size. 3. Use of iterative reconstruction technique. Electronically signed by: Zach Linares MD (05/15/2019 3:05 PM) [facility] DICTATED and SIGNED BY: ZACH LINARES MD DATE: 05/15/19 1505 Course & Med Decision Making Course & Med Decision Making Pertinent Labs and Imaging studies reviewed. (See chart for details) Patient is under a lot with her blood pressure medicine. Blood pressure in her right arm was 172/101, blood pressure left arm was 205/125. Will obtain Labs, CTA, and supportive care to work up for dissection. CTA is negative. Labs are unremarkable. Second set of BP's was L arm 167/78, R arm 183/88. Will prescribe muscle relaxer for back pain. Dragon Disclaimer Dragon Disclaimer This electronic medical record was generated, in whole or in part, using a voice recognition dictation system. Departure Departure Impression: Primary Impression: Back pain Disposition: 01 HOME, SELF-CARE Condition: STABLE Referrals: NO PCP (PCP) Patient Instructions: Musculoskeletal Pain Additional Instructions: Please follow up with primary care doctor for further workup. Thank you for visiting [facility]. We appreciate you trusting us with your care. If any additional problems come up don't hesitate to return to visit us. Please follow up with your primary care provider so they can plan additional care if needed and know about the problem that you had. If symptoms worsen come back to the Emergency Department. Any concerning symptoms that start such as chest pain, shortness of air, weakness or numbness on one side of the body, running high fevers or any other concerning symptoms return to the ER. Please fill your medications at any pharmacy and follow the prescription instructions. Scripts Orphenadrine Citrate (ORPHENADRINE CITRATE) 100 Mg Tablet.er 1 TAB PO BID, #20 TAB Prov: ARMIDA FLOR APRN 05/15/19 Problem Qualifiers Primary Impression: Back pain Back pain location: back pain in unspecified location Chronicity: acute Back pain laterality: right Qualified Codes: M54.9 - Dorsalgia, unspecified ARMIDA FLOR APRN May 15, 2019 12:34
[2019-05-15 13:28] LABS: BASO % 0 % (0-3); EOS % 1 % (0-3); HEMATOCRIT 36.3 % (36.0-47.0); HEMOGLOBIN 11.9 g/dL (12.0-15.5); LYMPH # 2.3 x10^3/uL (1.0-4.8); LYMPH % 34 % (24-48); MEAN CORPUSCULAR HEMOGLOBIN 28 pg (25-35); MEAN CORPUSCULAR HGB CONC 33 g/dL (31-37); MEAN CORPUSCULAR VOLUME 85 fL (79-100); MONO # 0.3 x10^3/uL (0.0-1.1); MONO % 5 % (0-9); NEUT # 4.2 x10^3/uL (1.8-7.7); NEUT % 61 % (31-73); PLATELET COUNT 350 x10^3/uL (140-400); RED BLOOD COUNT 4.29 x10^6/uL (3.50-5.40); RED CELL DISTRIBUTION WIDTH 14.5 % (11.5-14.5); WHITE BLOOD COUNT 6.9 x10^3/uL (4.0-11.0)
[2019-05-15 13:41] LABS: PROTHROMBIN TIME PATIENT 13.2 SEC (11.7-14.0)
[2019-05-15 13:47] LABS: CALCIUM 9.1 mg/dL (8.5-10.1); CREATININE 0.7 mg/dL (0.6-1.0); POTASSIUM 4.1 mmol/L (3.5-5.1)
[2019-05-15 13:49] LABS: PREG TEST PT QUAL NEGATIVE (NEG)
--- NOTE | 2019-05-15 13:51 | EKG ---
[facility] [address] [place] [address] Test Date: 2019-05-15 Test Time: 12:14:55 Pat Name: HOMA GRAY Department: Room: Gender: F [employer]: : 1975 Requested By: ARMIDA FLOR Order Number: [id number] Reading MD: Measurements Intervals [place] Rate: 70 P: 42 WA: 182 QRS: -17 QRSD: 136 T: -14 QT: 436 QTc: 474 Interpretive Statements SINUS RHYTHM LEFTWARD AXIS RIGHT BUNDLE BRANCH BLOCK QRS(T) CONTOUR ABNORMALITY CONSIDER ANTEROSEPTAL MYOCARDIAL DAMAGE ABNORMAL ECG RI6.01 No previous ECG available for comparison
[2019-05-15 13:53] LABS: ALBUMIN 3.5 g/dL (3.4-5.0); ALBUMIN/GLOBULIN RATIO 0.8 (1.0-1.7); TOTAL BILIRUBIN 0.4 mg/dL (0.2-1.0); TOTAL PROTEIN 8.1 g/dL (6.4-8.2)
[2019-05-15] MEDS ORDERED: IOHEXOL 350 MG/ML 100 ML VIAL. ONE (13:56)
[2019-05-15] MEDS ORDERED: IOHEXOL 350 MG/ML 100 ML VIAL. IV ONE (14:00)
[2019-05-15] MEDS ORDERED: CONTRAST GIVEN. MC PRN (14:00)
--- NOTE | 2019-05-15 15:08 | RAD ---
Examination: CT ANGIOGRAPHY HEAD AND NECK History: Dizziness, neck pain, bruit Comparison/Correlation: None FINDINGS: Axial images of the head and neck were obtained following IV contrast including arteriography protocol. Maximum intensity projection images were provided. Volume rendered images of the arterial vasculature were provided. No motion is noted at the base of the neck limiting evaluation of the proximal common carotid artery. Streak artifact at the level of the sternoclavicular joints is noted limiting evaluation of the proximal right common carotid artery. Angiographic findings: The aortic arch is unremarkable although aberrant right subclavian artery is noted.. There is no arch vessel stenosis. Both common carotid arteries are patent without stenosis. Both internal carotid arteries are patent without stenosis. The external carotid systems are patent. The vertebral arteries are patent. Left dominant vertebral arteries noted. The basilar artery is patent. Both posterior cerebral arteries are patent. The posterior communicating arteries are visualized. The intracranial internal carotid arteries demonstrate no stenosis. The middle cerebral arteries are patent. The anterior cerebral arteries are patent. The anterior communicating artery is visualized. Nonangiographic findings: There is no intracranial hemorrhage. Cantrell-white differentiation is preserved. The ventricles are normal in size and position. The paranasal sinuses appear clear. The orbits are unremarkable. The temporal bones are unremarkable. Bone windows reveal no suspicious lesions. The lung apices demonstrate no acute abnormality. The parotid glands and submandibular glands are unremarkable. The thyroid gland demonstrates no suspicious lesions. Nonenlarged level 2 lymph nodes bilaterally are present. There are no laryngeal or pharyngeal masses. There are no pathologically enlarged lymph nodes. IMPRESSION: No appreciable plaque identified involving the arterial vasculature of the head and neck. No significant stenosis, dissection, or aneurysm. Evaluation mildly limited as stated above. Nonenlarged bilateral level 2A lymph nodes are present. Aberrant right subclavian artery with retroesophageal course. PQRS Compliance Statement - Stenosis calculations for CT, MR and conventional angiography are based upon measurement of the distal ICA diameter in accordance with the NASCET methodology. Stenosis calculations for carotid ultrasound studies are derived from validated velocity criteria which are known to correlate with the NASCET methodology. *One or more of the following individualized dose reduction techniques were utilized for this examination: 1. Automated exposure control. 2. Adjustment of the mA and/or kV according to patient size. 3. Use of iterative reconstruction technique. Electronically signed by: Zach Sidhu MD (05/15/2019 3:05 PM) [facility]
[2019-05-15 16:30] VITALS: BP 183/88
[2019-05-15] MEDS ORDERED: ORPH100T PO (16:36)
== END 2019-05-15 17:00 | disposition home or self-care (01) ==
LOC: ER 11:34
DX: M54.6 Pain in thoracic spine (principal); R51 Headache; R42 Dizziness and giddiness; M54.2 Cervicalgia; H57.13 Ocular pain, bilateral; R11.0 Nausea; E78.00 Pure hypercholesterolemia, unspecified; I10 Essential (primary) hypertension; I25.10 Atherosclerotic heart disease of native coronary artery without angina pectoris; I25.2 Old myocardial infarction; Z90.49 Acquired absence of other specified parts of digestive tract; Z95.5 Presence of coronary angioplasty implant and graft
CPT/HCPCS: 36415; 70496; 70498; 80053; 84703; 85025; 85610; 85730; 93005; 96361; 96374; 96375; 99285; J2270; J2360; J2405; J7030; Q9967

== ENCOUNTER 2021-04-05 09:25 | Emergency (ER) | payer OTHER ==
[~2021-04-05] VITALS: Ht 170.2 cm; Wt 127.0 kg
[~2021-04-05 09:25] MED LIST changes: -ASPI-612 PO; +ASPI-886 PO; -LISI-338 PO; +LISI-517 PO; +ORPH100T PO; +SIMV10TA15 PO; -SIMV10TA3 PO
[2021-04-05] MEDS ORDERED: ACETAMINOPHEN 500 MG TABLET PO ONE (10:15)
[2021-04-05] MEDS ORDERED: KETOROLAC 60 MG/2 ML VIAL. IM ONE (10:15)
--- NOTE | 2021-04-05 10:46 | RAD ---
EXAM: Chest, single view. HISTORY: Covid 19. COMPARISON: 05/15/2019 FINDINGS: A frontal view of the chest is obtained. There is no infiltrate, pleural effusion or pneumo thorax. The heart is normal in size. IMPRESSION: No acute pulmonary finding. Electronically signed by: Monique Razo MD (04/05/2021 10:44 AM) [id number]
[2021-04-05] MEDS ORDERED: ALBU2.5V8 IH (11:00)
[2021-04-05] MEDS ORDERED: METH4TAB2 PO (11:00)
--- NOTE | 2021-04-05 11:00 | ED.ADGEN ---
Past Medical History Past Medical History: CAD, High Cholesterol, Hypertension, [place] Past Surgical History: Cholecystectomy, Other Additional Past Surgical Histo: cardiac cath, no stents placed. Smoking Status: Never Smoker Alcohol Use: None Drug Use: None General Adult EDM: Chief Complaint: FLU SYMPTOM HPI: HPI: Patient is a 46 year old female coming in for multiple complaints. Patient complaining of a headache, fever, body aches, chest congestion, and occasional cough. Patient has not had her Covid vaccines and was out around people 2 days prior to getting sick. Had symptoms for the past 2 days. Review of Systems: Review of Systems: All other systems within normal limits except for as noted in the HPI Current Medications: Current Medications Medications (Trade) Dose Ordered Sig/Kristopher Start Time Stop Time Status Last Admin Dose Admin Acetaminophen (Tylenol) 1,000 mg 1X ONCE 04/05/21 10:15 04/05/21 10:16 DC 04/05/21 10:31 1,000 MG Ketorolac Tromethamine (Toradol Im) 60 mg 1X ONCE 04/05/21 10:15 04/05/21 10:16 DC 04/05/21 10:32 60 MG Allergies: Allergies: Allergies Coded Allergies Type Severity Reaction Last Updated Verified No Known Drug Allergies 04/07/14 No Physical Exam: PE: Constitutional: Well developed, well nourished, no acute distress, non-toxic appearance. [] HENT: Normocephalic, atraumatic, bilateral external ears normal, nose normal. [] Eyes: PERRLA, conjunctiva normal, no discharge. [] Neck: No rigidity, supple, no stridor. [] Cardiovascular: Regular rate and rhythm, brisk cap refill [] Lungs & Thorax: Non labored symmetric respirations, no tachypnea or respiratory distress [] Abdomen: Soft, nondistended. Skin: Warm, dry, no erythema, no rash. [] Back: Unremarkable Extremities: No deformities, range of motion grossly intact, no lower extremity edema [] Neurologic: Alert and oriented X 3, no focal deficits noted. [] Psychologic: Affect normal, judgement normal, mood normal. [] Current Patient Data: Vital Signs: Vital Signs Date Time Temp Pulse Resp B/P (MAP) Pulse Ox O2 Delivery O2 Flow Rate FiO2 04/05/21 09:38 101.6 98 18 187/90 (119) 97 Room Air 101.6 EKG: EKG: [] Heart Score: C/O Chest Pain: No Risk Factors: Risk Factors: DM, Current or recent (<one month) smoker, HTN, HLP, family history of CAD, obesity. Risk Scores: Score 0 - 3: 2.5% MACE over next 6 weeks - Discharge Home Score 4 - 6: 20.3% MACE over next 6 weeks - Admit for Clinical Observation Score 7 - 10: 72.7% MACE over next 6 weeks - Early Invasive Strategies Radiology/Procedures: Radiology/Procedures: [facility] [address] [place] [address] IMAGING REPORT Signed PATIENT: HOMA GRAY TACCOUNT: [id number] : 1975 LOCATION: ER AGE: 46 SEX: F EXAM STATUS: PRE ER ORD. PHYSICIAN: TREV ROGER MD REASON: covid PROCEDURE: CHEST AP ONLY EXAM: Chest, single view. HISTORY: Covid 19. COMPARISON: 05/15/2019 FINDINGS: A frontal view of the chest is obtained. There is no infiltrate, pleural effusion or pneumothorax. The heart is normal in size. IMPRESSION: No acute pulmonary finding. Electronically signed by: Monique Razo MD (04/05/2021 10:44 AM) [id number] DICTATED and SIGNED BY: MONIQUE RAZO MD DATE: 04/05/21 [id number] [] Course & Med Decision Making: Course & Med Decision Making Vital signs stable, no tachypnea or hypoxia. No signs of pneumonia on chest x- ray. Discussed return precautions and quarantine measures. Dragon Disclaimer: Dragon Disclaimer: This electronic medical record was generated, in whole or in part, using a voice recognition dictation system. Departure Departure Impression: Primary Impression: Person under investigation for COVID-19 Disposition: HOME / SELF CARE / HOMELESS Condition: STABLE Referrals: NO PCP (PCP) Additional Instructions: Follow-up with a primary care provider for reevaluation of blood pressure when not feeling ill. Treat symptoms with [id number] medications. You have been tested for or diagnosed with COVID-19. It is an infection caused by a new type of coronavirus. COVID-19 will cause cold-like or mild flu symptoms in most. It can cause more severe symptoms like problems breathing in some. There is no treatment for COVID-19. The body will clear the infection over time. Self-care will help to ease discomfort. Steps to Take: Self-Care Rest as needed. Healthy habits may help you feel better. Steps include: Choose healthy foods including fruits and vegetables. Drink water throughout the day. Get plenty of sleep each night. If you smoke, try to quit. It may ease breathing. Avoid alcohol. Keep Others Healthy The virus can spread to others. Droplets are released every time you sneeze or cough. The droplets can get into the mouth, nose, or eyes of people near you and lead to infection. To lower the chances of spreading COVID-19 to others: Stay at home until your doctor has said it is safe to leave. If you tested positive this will mean staying isolated until both of the following are true: At least 7 days have passed since the start of illness. You are free of fever for at least 72 hours without the use of medicine. During this time: - Avoid public areas, events, or transportation. Do not return to work or school until your doctor has said it is safe to do so. - Call ahead if you need to go to a medical center. Let them know you may have COVID-19. It will help them guide you where to go. They may also ask you to wear a facemask when you come to the office. - If you call for emergency medical services, let them know you may have COVID- 19. While at home: - Try to avoid close contact with others. Stay about 6 feet away. - If possible, spend most of your time in a separate room from others. - Use a face mask if you will be in close contact with others such as sharing a room or vehicle. - Have someone wipe down common surfaces in the home. Use household structural drafter every day on areas like doorknobs, counters, or sinks. - Cough or sneeze into a tissue. Throw the tissue away right after use. If a tissue is not available, cough or sneeze into your elbow. - Wash your hands often. Wash them after sneezing or coughing. Use soap and water and wash for at least 20 seconds. Alcohol based hand hand dry cleaner can be used if soap and water is not available. - Do not prepare food for others. Avoid sharing personal items like forks, spoons, or toothbrushes. - Avoid close contact with pets while you are sick. There is no evidence of the virus passing to pets. This is a safety step until more is known about this virus. Isolation can be frustrating. Social interaction can help. Keep in touch with friends and family through phone and tech options. You can still interact with others in your home, just keep a safe distance of about 6 feet. Follow-up: Your doctors office will check in with you to see if there are any changes in your health. You may be asked to keep track of symptoms to share with them. They will also le t you know when you are clear to be in public again. Problems to Look Out For: Contact your doctor if your recovery is not going as you expect. Get emergency care if you have problems such as: - Trouble breathing - Nonstop chest pain or pressure - Changes in awareness, confusion, or problems waking - Lips or face have bluish color - Worsening of symptoms If you think you have an emergency, call for emergency medical services right away. As taken from [facility] Albuterol Sulfate (PROAIR HFA INHALER) 8.5 Gm Hfa.aer.ad 2 PUFF IH PRN Q4-6HRS PRN for wheezing for 21 Days, #1 INHALER 0 Refills Prov: TREV ROGER MD 04/05/21 Methylprednisolone (MEDROL) 4 Mg Tab.ds.pk 1 PKG PO UD for inflammation, #1 PKG Prov: TREV ROGER MD 04/05/21 TREV ROGER MD Apr 05, 2021 11:00
[2021-04-05 11:30] VITALS: BP 171/89
--- NOTE | 2021-04-06 08:14 | NUR ---
IP: Attempted to contact pt concerning covid results. No answer, left a voicemail to return the call.
== END 2021-04-05 11:35 | disposition home or self-care (01) ==
LOC: ER 09:25
DX: U07.1 COVID-19 (principal); I10 Essential (primary) hypertension; E78.00 Pure hypercholesterolemia, unspecified; I25.10 Atherosclerotic heart disease of native coronary artery without angina pectoris; I25.2 Old myocardial infarction
CPT/HCPCS: 71045; 96372; 99283; J1885; U0003; U0005